=== PATIENT | male | born 1960 | race Hispanic/Latino ===

== ENCOUNTER 2017-03-21 09:32 | Emergency (ER) | payer MEDICAID, OTHER ==
[2017-03-21 09:38] VITALS: TEMP 97
[2017-03-21 09:39] VITALS: BMI 21.7
[2017-03-21 09:41] VITALS: BP 148/95; PULSE 87; RESP 18; O2SAT 100
--- NOTE | 2017-03-21 10:05 | ED PDOC ---
HPI: General Adult Time Seen by Provider: 03/21/17 09:57 Chief Complaint (Nursing): Trauma Chief Complaint (Provider): fall and injury History Per: Patient History/Exam Limitations: no limitations Onset/Duration Of Symptoms: Days (Yesterday) Have you had recent travel within the past 21 days to any of the following countries: [place], [place], [place] or [place]?: No Current Symptoms Are (Timing): Still Present Severity: Mild Additional Complaint(s): 57 year old male presents to ED with complaints of pain to left shoulder and knee after fall yesterday. Patient reports walking his dog last night and dog pulled him, causing him to twist left knee, lose balance and fall. He reports pain to shoulder and knee on left side. He reports pain is worse with movement or walking. Denies any head injury or other associated complaints. Past Medical History Reviewed: Historical Data, Nursing Documentation, Vital Signs Vital Signs: Last Vital Signs Temp 97 F L 03/21/17 09:38 Pulse 87 03/21/17 09:38 Resp 18 03/21/17 09:38 BP 148/95 H 03/21/17 09:38 Pulse Ox 100 03/21/17 10:55 - Medical History PMH: Depression, HTN - Family History Family History: States: Unknown Family Hx - Immunization History Hx Tetanus Toxoid Vaccination: No Hx Influenza Vaccination: No Hx Pneumococcal Vaccination: No - Home Medications Home Medications: Ambulatory Orders Medication Instructions Recorded Ibuprofen [Motrin] 600 mg PO Q8 #30 tab 03/21/17 - Allergies Allergies/Adverse Reactions: Allergies Allergy/AdvReac Type Severity Reaction Status Date / Time No Known Allergies Allergy Verified 03/21/17 09:37 Review of Systems ROS Statement: Except As Marked, All Systems Reviewed And Found Negative Musculoskeletal: Positive for: Shoulder Pain, Leg Pain Physical Exam - Reviewed Nursing Documentation Reviewed: Yes Vital Signs Reviewed: Yes - Physical Exam Appears: Positive for: Non-toxic, No Acute Distress Head Exam: Positive for: ATRAUMATIC, NORMAL INSPECTION, NORMOCEPHALIC Skin: Positive for: Warm, Dry. Negative for: Rash Eye Exam: Positive for: Normal appearance Neck: Positive for: Painless ROM Cardiovascular/Chest: Positive for: Regular Rate, Rhythm Respiratory: Positive for: Normal Breath Sounds Pulses-Radial (L): 2+ Neurologic/Psych: Positive for: Alert, Oriented Comments: Left upper extremity: no obvious deformity. Tenderness on palpation to anterolateral aspect and pain with abduction of shoulder. Elbow, wrist, hand and digits nontender, no swelling and normal radial pulse Left lower extremity: tenderness and swelling to anterior and medial aspect of knee. pain with flexion of knee, no laxity. No ecchymosis. No calf tenderness. Ankle and foot nontender with normal ROM. - ECG O2 Sat by Pulse Oximetry: 100 Medical Decision Making Medical Decision Making: patient fell onto left side and hurt shoulder and knee Xrays ordered to rule out fracture, Motrin PO given. Xrays viewed by me showing no acute fracture or dislocation to shoulder. Knee xray shows small effusion, no dislocation or fracture. Knee immobilizer applied by CP. Crutches with proper instructions. Patient advised to rest, ice and take analgesics as needed. Follow up with orthopedic if pain persist. Disposition - Clinical Impression Clinical Impression: Shoulder contusion, Contusion of knee, Knee effusion, left - Patient ED Disposition Is Patient to be Admitted: No Counseled Patient/Family Regarding: Studies Performed, Diagnosis, Need For Followup, Rx Given - Disposition Referrals: Pb Mello MD [Staff Provider] - Disposition: Routine/Home Disposition Time: 11:17 Condition: STABLE Additional Instructions: Your xray was normal, no fracture. Please apply ice to area 15 minutes three times a day. Take Motrin as needed for pain every 6 hours, with food to not upset stomach. Follow up with orthopedic if pain persists over one week. Prescriptions: Ibuprofen [Motrin] 600 mg PO Q8 #30 tab Instructions: Contusion in Adults (DC), Swollen Knee Joint (ED) Forms: [employer] (Armenian) - POA Present On Arrival: Falls Or Trauma
--- NOTE | 2017-03-21 11:47 | RAD ---
PROCEDURE: Radiographs of the Left Shoulder HISTORY: pain s.p fall COMPARISON: No prior. FINDINGS: BONES: Normal. No fracture. JOINTS: Normal. Glenohumeral and acromioclavicular joints preserved. No osteoarthritis. SOFT TISSUES: Normal. OTHER FINDINGS: None. IMPRESSION: Unremarkable radiographs of the left shoulder. Concordant results with the preliminary interpretation rendered by the emergency department physician procedure.
--- NOTE | 2017-03-21 11:52 | RAD ---
PROCEDURE: Left Knee Radiographs. HISTORY: Pain. COMPARISON: None. FINDINGS: BONES: Normal. No fracture. JOINTS: Normal. No osteoarthritis. JOINT EFFUSION: None. OTHER FINDINGS: None. IMPRESSION: Unremarkable radiographs of the left knee.
== END 2017-03-21 11:28 | disposition home or self-care (01) ==
LOC: H.ER 09:32
DX: S40.012A Contusion of left shoulder, initial encounter (principal); S80.02XA Contusion of left knee, initial encounter; W19.XXXA Unspecified fall, initial encounter; Y93.K1 Activity, walking an animal; F32.9 Major depressive disorder, single episode, unspecified; I10 Essential (primary) hypertension

== ENCOUNTER 2017-04-01 01:15 | Emergency (ER) | payer MEDICAID, OTHER ==
[2017-04-01 01:15] VITALS: BMI 21.7
[2017-04-01 01:27] VITALS: O2SAT 100
--- NOTE | 2017-04-01 02:19 | ED PDOC ---
Lower Extremity Pain/Injury Time Seen by Provider: 04/01/17 01:21 Chief Complaint (Nursing): Lower Extremity Problem/Injury Chief Complaint (Provider): Lower Extremity Problem History/Exam Limitations: no limitations Current Symptoms Are (Timing): Still Present Additional Complaint(s): 57 year old male brought in by EMS presents to ED with complaints of atraumatic left knee and ankle pain and has a history of alcohol abuse and is undomiciled. Patient presented to the ED previously for the same complaint and had a negative knee XR at the time. PCP: [facility] Past Medical History Reviewed: Historical Data, Nursing Documentation, Vital Signs Vital Signs: Last Vital Signs Temp 97.8 F 04/01/17 01:24 Pulse 82 04/01/17 01:24 Resp 18 04/01/17 01:24 BP 107/77 04/01/17 01:24 Pulse Ox 100 04/01/17 01:24 - Medical History PMH: Depression, HTN - Family History Family History: States: Unknown Family Hx - Living Arrangements Living Arrangements: Other (Undomiciled) - Social History Alcohol: > 2 Drinks/Day - Immunization History Hx Tetanus Toxoid Vaccination: No Hx Influenza Vaccination: No Hx Pneumococcal Vaccination: No - Home Medications Home Medications: Ambulatory Orders Medication Instructions Recorded Ibuprofen [Motrin] 600 mg PO Q8 #30 tab 03/21/17 Acetaminophen [Pain Reliever] 500 mg PO Q4 #30 tablet 04/01/17 - Allergies Allergies/Adverse Reactions: Allergies Allergy/AdvReac Type Severity Reaction Status Date / Time No Known Allergies Allergy Verified 04/01/17 01:24 Wells Criteria for PE - Wells Criteria for Pulmonary Embolism Heart Rate >100: No Hemoptysis: No Total Score: 0 Review of Systems ROS Statement: Except As Marked, All Systems Reviewed And Found Negative Musculoskeletal: Positive for: Leg Pain (left knee pain), Foot Pain (left ankle pain) Physical Exam - Reviewed Nursing Documentation Reviewed: Yes Vital Signs Reviewed: Yes - Physical Exam Appears: Positive for: Non-toxic, No Acute Distress (intoxicated appearing) Head Exam: Positive for: ATRAUMATIC, NORMOCEPHALIC Skin: Positive for: Normal Color, Warm, Dry Respiratory: Negative for: Respiratory Distress Extremity: Positive for: Normal ROM, Tenderness (left lateral/medial malleolus tenderness), Swelling (left knee had no swelling, left ankle mild swelling.). Negative for: Deformity Neurologic/Psych: Positive for: Alert, Oriented, Gait (unsteady), Other ( slurred speech). Negative for: Motor/Sensory Deficits - ECG O2 Sat by Pulse Oximetry: 100 (RA) Pulse Ox Interpretation: Normal Medical Decision Making Medical Decision Makin Initial impression: arthritic pain and EtOH abuse Initial plan: * Ibuprofen 600mg PO * XR ANKLE LEFT * Re-evaluation 0254 XR: NAD Patient is stable for discharge. Scribe Attestation: Documented by Pam Johnson acting as a scribe for Feroz Barajas MD. Scribe Attestation: All medical record entries made by the Scribe were at my direction and personally dictated by me. I have reviewed the chart and agree that the record accurately reflects my personal performance of the history, physical exam, medical decision making, and the department course for this patient. I have also personally directed, reviewed, and agree with the discharge instructions and disposition. Disposition - Clinical Impression Clinical Impression: Ankle pain - Disposition Referrals: Podiatry Clinic [Outside] Disposition: Routine/Home Disposition Time: 02:54 Condition: STABLE Prescriptions: Acetaminophen [Pain Reliever] 500 mg PO Q4 #30 tablet Instructions: Swollen Joint (ED) Forms: [employer] (Sami)
[2017-04-01 06:20] VITALS: BP 122/70; PULSE 87; RESP 16; TEMP 98.4
--- NOTE | 2017-04-01 10:39 | RAD ---
PROCEDURE: Left Ankle Radiographs. HISTORY: ankle swelling x 2 weeks COMPARISON: None FINDINGS: BONES: Normal. No fracture. JOINTS: Normal. No osteoarthritis. Ankle mortise maintained. Talar dome intact SOFT TISSUES: Soft tissue swelling primarily about the distal fibula without fracture. OTHER FINDINGS: None. IMPRESSION: Soft tissue swelling without acute articular or osseous abnormality. Concordant results with the preliminary interpretation rendered by the emergency department physician procedure.
== END 2017-04-01 06:20 | disposition home or self-care (01) ==
LOC: H.ER 01:15
DX: F10.10 Alcohol abuse, uncomplicated (principal); M19.072 Primary osteoarthritis, left ankle and foot; F32.9 Major depressive disorder, single episode, unspecified; I10 Essential (primary) hypertension

== ENCOUNTER 2018-06-27 05:39 | Emergency (ER) | payer MEDICAID ==
[2018-06-27 05:45] VITALS: BMI 19.8
[2018-06-27 05:52] VITALS: PULSE 81; RESP 18; TEMP 98
[2018-06-27] MEDS ORDERED: Permethrin 5% CREAM TOP ONE (06:17)
--- NOTE | 2018-06-27 06:26 | ED PDOC ---
HPI: Skin/Bite Injury Time Seen by Provider: 06/27/18 05:58 Chief Complaint (Nursing): Groin Pain Chief Complaint (Provider): Rash History Per: Patient History/Exam Limitations: no limitations Onset/Duration Of Symptoms: Days (x 7) Current Symptoms Are (Timing): Still Present Additional Complaint(s): 58 year old male with no significant medical history presents to the ED for evaluation of a diffuse, erythematous rash with small areas of crustation, onset 1 week ago. Patient is currently homeless and resides in the snf. Denies associated fever, vomiting, diarrhea and shortness of breath. PMD: none provided Past Medical History Reviewed: Historical Data, Nursing Documentation, Vital Signs Vital Signs: Last Vital Signs Temp 98.0 F 06/27/18 05:45 Pulse 81 06/27/18 05:45 Resp 18 06/27/18 05:45 BP 168/112 H 06/27/18 05:45 Pulse Ox 100 06/27/18 05:45 - Medical History PMH: Depression, HTN - Surgical History Surgical History: No Surg Hx - Family History Family History: States: Unknown Family Hx - Immunization History Hx Tetanus Toxoid Vaccination: No Hx Influenza Vaccination: No Hx Pneumococcal Vaccination: No - Home Medications Home Medications: Ambulatory Orders Medication Instructions Recorded Ibuprofen [Motrin] 600 mg PO Q8 #30 tab 03/21/17 Acetaminophen [Pain Reliever] 500 mg PO Q4 #30 tablet 04/01/17 - Allergies Allergies/Adverse Reactions: Allergies Allergy/AdvReac Type Severity Reaction Status Date / Time No Known Allergies Allergy Verified 06/27/18 05:45 Review of Systems ROS Statement: Except As Marked, All Systems Reviewed And Found Negative Constitutional: Negative for: Fever Respiratory: Negative for: Shortness of Breath Gastrointestinal: Negative for: Vomiting, Abdominal Pain Skin: Positive for: Rash Physical Exam - Reviewed Nursing Documentation Reviewed: Yes Vital Signs Reviewed: Yes - Physical Exam Appears: Positive for: No Acute Distress Head Exam: Positive for: ATRAUMATIC, NORMAL INSPECTION, NORMOCEPHALIC Skin: Positive for: Warm, Dry, Rash (diffuse scabies rash to trunk, upper and lower extremities) Eye Exam: Positive for: EOMI, Normal appearance, PERRL Neck: Positive for: Normal, Painless ROM, Supple Cardiovascular/Chest: Positive for: Regular Rate, Rhythm. Negative for: Murmur Respiratory: Positive for: Normal Breath Sounds. Negative for: Respiratory Distress Gastrointestinal/Abdominal: Positive for: Normal Exam, Soft. Negative for: Tenderness Extremity: Positive for: Normal ROM (x 4). Negative for: Deformity Neurologic/Psych: Positive for: Alert, Oriented (x 3). Negative for: Motor/Sensory Deficits - ECG O2 Sat by Pulse Oximetry: 100 (RA) Pulse Ox Interpretation: Normal Medical Decision Making Medical Decision Makin:17 Impression: 58 year old male with scabies Initial Plan: Patient was escorted to shower and provided with dosage of Elimite. He is stable for discharge and requires no further treatment at this time. Scribe Attestation: Documented by Bruna Forman acting as a scribe for Jose Angel Resendiz MD Provider Scribe Attestation: All medical record entries made by the Scribe were at my direction and personally dictated by me. I have reviewed the chart and agree that the record accurately reflects my personal performance of the history, physical exam, medical decision making, and the department course for this patient. I have also personally directed, reviewed, and agree with the discharge instructions and disposition. Disposition - Clinical Impression Clinical Impression: Scabies - Patient ED Disposition Is Patient to be Admitted: No - Disposition Disposition: Routine/Home Disposition Time: 06:17 Condition: STABLE Instructions: Scabies Forms: [employer] (Tajik)
[2018-06-27 06:53] VITALS: BP 154/89; O2SAT 99
== END 2018-06-27 06:52 | disposition home or self-care (01) ==
LOC: H.ER 05:39
DX: B86 Scabies (principal); Z59.0 Homelessness

== ENCOUNTER 2018-07-12 05:12 | Inpatient (IN) | payer MEDICAID ==
[2018-07-12 05:12] VITALS: BMI 19.8
[2018-07-12] MEDS ORDERED: Permethrin 5% CREAM TOP ONE (05:44)
--- NOTE | 2018-07-12 06:53 | ED PDOC ---
HPI: SOB/CHF/COPD Time Seen by Provider: 07/12/18 05:44 Chief Complaint (Nursing): Abnormal Skin Integrity History Per: Patient History/Exam Limitations: no limitations Onset/Duration Of Symptoms: Days Current Symptoms Are (Timing): Still Present Quality: Tightness Exacerbating Factor(s): Coughing Associated Symptoms: denies: Fever, Chills, Chest Pain, Ankle/Leg Swelling Additional Complaint(s): 58 yo M presents with complaint of cough worsening over one week. Cough productive of sputum. No CP or fever. Pt also complains of scabies to chest and arms and there is a known outbreak in his skilled nursing. Past Medical History Vital Signs: Last Vital Signs Temp 98.2 F 07/12/18 05:15 Pulse 107 H 07/12/18 05:15 Resp 18 07/12/18 05:15 BP 142/88 07/12/18 05:15 Pulse Ox 94 L 07/12/18 05:15 - Medical History PMH: Depression, HTN - Family History Family History: States: Unknown Family Hx - Immunization History Hx Tetanus Toxoid Vaccination: No Hx Influenza Vaccination: No Hx Pneumococcal Vaccination: No - Home Medications Home Medications: Ambulatory Orders Medication Instructions Recorded Ibuprofen [Motrin] 600 mg PO Q8 #30 tab 03/21/17 Acetaminophen [Pain Reliever] 500 mg PO Q4 #30 tablet 04/01/17 - Allergies Allergies/Adverse Reactions: Allergies Allergy/AdvReac Type Severity Reaction Status Date / Time No Known Allergies Allergy Verified 07/12/18 05:38 Curb-65 Severity Score - CURB-65 Severity Score Confusion: No Bun >19mg/dl (>7mmol/L): No Respiratory Rate greater than/equal to 30: No Systolic BP <90 or Diastolic BP less than/equal 60mmHg: No Age >64: No Curb-65 Score: 0 Percentage 30-day mortality: 0.6% Review of Systems Constitutional: Positive for: Weakness. Negative for: Fever, Chills Eyes: Negative for: Pain, Vision Change Cardiovascular: Negative for: Chest Pain, Palpitations, Edema Respiratory: Positive for: Cough, Shortness of Breath Gastrointestinal: Positive for: Nausea Neurological: Negative for: Weakness, Numbness, Incoordination, Change in Speech, Confusion, Seizures, Altered Mental Status Psych: Negative for: Withdrawal Physical Exam - Physical Exam Appears: Positive for: Well, Non-toxic, No Acute Distress Head Exam: Positive for: ATRAUMATIC Skin: Positive for: Normal Color, Rash (red, tender bumps across upper chest and upper extremities. Supperficial excoriations to chest and arms.) Eye Exam: Positive for: Normal appearance ENT: Positive for: Normal ENT Inspection Neck: Positive for: Normal Cardiovascular/Chest: Positive for: Regular Rate, Rhythm Respiratory: Positive for: Normal Breath Sounds Gastrointestinal/Abdominal: Positive for: Normal Exam, Soft. Negative for: Tenderness Back: Positive for: Normal Inspection Extremity: Positive for: Normal ROM. Negative for: Tenderness, Pedal Edema, Calf Tenderness, Swelling Neurologic/Psych: Positive for: Alert, time lock expert II-XII, Oriented - ECG O2 Sat by Pulse Oximetry: 94 Medical Decision Making Medical Decision Making: Pt with cough and generalized malaise. Scabies of torso and extremities. Workup for URI/pneumonia. Pt showered prior to evaluation in the ED and Permethrin cream was applied to torso. -lab -nebulizer treatment -CXR -most likely discharge home. Pt to be signed out to Dr. Carlson pending labs and CXR. Disposition - Clinical Impression Clinical Impression: Moderate COPD (chronic obstructive pulmonary disease), Cough, Scabies - Patient ED Disposition Is Patient to be Admitted: No - Disposition Disposition: Transfer of Care Disposition Time: 07:02 Condition: IMPROVED Forms: [employer] (Dominican)
[2018-07-12] MEDS ORDERED: Albuterol-Ipratrop 3 mg / 0.5 (3 ml) UD INH STA (07:11)
--- NOTE | 2018-07-12 07:19 | ED PDOC ---
- Laboratory Results Result Diagrams: 07/12/18 07:00 07/12/18 07:00 - ECG ECG: Positive for: Interpreted By Me ECG Rhythm: Positive for: Normal QRS, Sinus Tachycardia, Nonspecific Changes Rate: 107 O2 Sat by Pulse Oximetry: 94 Pulse Ox Interpretation: Abnormal (mild hypoxia) - Radiology X-Ray: Interpreted by Me X-Ray Interpretation: Pnemothorax - Physician Consult Information Physician Contacted: Meir Vernon (ICU care) - Critical Care Total Time (In Min): 35 Comments: excluding procedures for management of pre and post procedure of patient with acute tension pneumothorax Medical Decision Making Medical Decision Making: Time: 717 Patient endorsed to provider from Shannan Hart MD. Patient pending labs and CXR. CXR revealed large L sided pneumothorax with some midline shift on my read, unlikely bullae as compared to prior CXR significant difference in appearance To proceed with chest tube placement. Consent obtained signed and scanned in chart after risks/benefits/alternatives explained. patient is AAOx3. Labs reviewed, coags and platelets normal, etoh 51 Ativan 1mg prior given for mild alcohol withdrawal with tremulousness and anxiety. States drinks daily, last drink last night. Procedure Note Chest tube placement president finance company Dr Sierra performed procedure under my supervision for entirety of procedure. Time out performed with correct patient via 2 identifiers, site (L) and pr ocedure (L chest tube placement) verified. Personnel, equipment and allergies again verified. Remained awake for procedure, performed with local anesthesia. Analgesics given. See adjoining surgery note. On dissection to pleural space, some element tension pneumo likely present given clinical decompression evident. Repeat CXR lung re-expanded. Admit ICU floor covering contractor medicine GOLDY Etienne at bedside 915a and Dr Vernon ICU aware 910am, care transferred. Surgery to follow for CT surg consult, CT chest ordered. Scribe Attestation: Documented by Kali Farris, acting as a scribe for Jose M Carlson III, DO. Provider Scribe Attestation: All medical record entries made by the Scribe were at my direction and personally dictated by me. I have reviewed the chart and agree that the record accurately reflects my personal performance of the history, physical exam, medical decision making, and the department course for this patient. I have also personally directed, reviewed, and agree with the discharge instructions and disposition. Disposition Counseled Patient/Family Regarding: Studies Performed, Diagnosis - Clinical Impression Clinical Impression: Moderate COPD (chronic obstructive pulmonary disease), Cough, Scabies, Tension pneumothorax, spontaneous - POA Present On Arrival: None - Disposition Disposition: Admitted as In-Patient Disposition Time: 09:00 Condition: IMPROVED
[2018-07-12] MEDS ORDERED: Albuterol-Ipratrop 3 mg / 0.5 (3 ml) UD ONE (07:25)
[2018-07-12 07:55] LABS: BASO # 0.1 K/uL (0.0-0.2); BASO % 0.9 % (0.0-2.0); EOS # 0.1 K/uL (0.0-0.7); EOS % 0.7 % (0.0-4.0); HEMOGLOBIN 14.6 g/dL (12.0-18.0); LYMPH # 1.6 K/uL (1.0-4.3); LYMPH % 14.6 % (20.0-40.0); MEAN CELL VOLUME 95.9 fl (80.0-94.0); MEAN CORPUSCULAR HEMOGLOBIN 31.9 pg (27.0-31.0); MEAN CORPUSCULAR HGB CONC 33.2 g/dL (33.0-37.0); MEAN PLATELET VOLUME 8.8 fl (7.2-11.7); MONO # 1.2 K/uL (0.0-0.8); MONO % 11.6 % (0.0-10.0); NEUT # 7.7 K/uL (1.8-7.0); NEUT % 72.2 % (50.0-75.0); NRBC % 0.1 % (0.0-0.0); RBC 4.58 Mil/uL (4.40-5.90); RED CELL DISTRIBUTION WIDTH 12.8 % (11.5-14.5); WHITE BLOOD COUNT 10.6 K/uL (4.8-10.8)
[2018-07-12 08:19] LABS: BLOOD UREA NITROGEN 17 mg/dl (9-20); CALCIUM 9.6 mg/dL (8.4-10.2); GFR NON-AFRICAN AMERICAN > 60
[2018-07-12 08:20] LABS: PROTHROMBIN TIME 11.8 Seconds (9.8-13.1)
[2018-07-12 08:23] LABS: PARTIAL THROMBOPLASTIN TIME 32.2 Seconds (25.6-37.1)
[2018-07-12] MEDS ORDERED: Lidocaine 1% Inj (20ml) IJ ONE (08:31)
[2018-07-12] MEDS ORDERED: Povidone Iodine Topical 10% Sol ONE (08:32)
[2018-07-12] MEDS ORDERED: Lidocaine 2% MPF (5 ml) Inj ONE ×2 (08:33)
[2018-07-12] MEDS ORDERED: Morphine 4 MG/ML VIAL ONE (08:39)
--- NOTE | 2018-07-12 09:13 | CP.PCM.CON ---
History of Present Illness - History of Present Illness History of Present Illness: CARDIOTHORACIC CONSULT NOTE FOR DR. AWAD Reason: left pneumothorax 58M presents with shortness of breath that began earlier today. Patient states he has never had something like this before. He admits to symptoms of URI inclu ding cough for the last week. He admits to chest pain, denies abdominal pain, denies nausea or vomiting. Admits to use of cocaine 3 days ago. PMH: Scabies PSH: Left inguinal hernia repair, vein stripping Social: admits to tobacco use, cocaine use and alcohol use Allergies: NKDA Past Patient History - Past Medical History & Family History Past Medical History?: Yes - Past Social History Smoking Status: Heavy Smoker > 10 Cigarettes Daily - CARDIAC Hx Hypertension: Yes - PULMONARY Hx Respiratory Disorders: No - NEUROLOGICAL Hx Neurological Disorder: No - HEENT Hx HEENT Problems: No - ENDOCRINE/METABOLIC Hx Endocrine Disorders: No - HEMATOLOGICAL/ONCOLOGICAL Hx Blood Disorders: No - INTEGUMENTARY Hx Dermatological Problems: No - MUSCULOSKELETAL/RHEUMATOLOGICAL Hx Musculoskeletal Disorders: No - GASTROINTESTINAL Hx Gastrointestinal Disorders: No - GENITOURINARY/GYNECOLOGICAL Hx Genitourinary Disorders: No - PSYCHIATRIC Hx Depression: Yes Hx Substance Use: Yes - SURGICAL HISTORY Hx Surgeries: Yes Hx Herniorrhaphy: Yes (left groin hernia SX) Other/Comment: VERICOSE VEIN S/L LEFT LEG 1990 - ANESTHESIA Hx Anesthesia: Yes Hx Anesthesia Reactions: No Hx Malignant Hyperthermia: No Meds Allergies/Adverse Reactions: Allergies Allergy/AdvReac Type Severity Reaction Status Date / Time No Known Allergies Allergy Verified 07/12/18 05:38 - Medications Medications: Current Medications Lorazepam (Ativan) 1 mg IVP ONCE ONE Stop: 07/12/18 09:09 Morphine Sulfate (Morphine) 2 mg IV ONCE STA Stop: 07/12/18 09:08 Morphine Sulfate (Morphine) 2 mg IV ONCE STA Stop: 07/12/18 09:08 Physical Exam - Constitutional Additional comments: Uncomfortable from shortness of breath - Head Exam Head Exam: ATRAUMATIC - ENT Exam ENT Exam: Mucous Membranes Moist - Respiratory Exam Respiratory Exam: Decreased Breath Sounds (left sided) Additional comments: tachypnic - Cardiovascular Exam Cardiovascular Exam: Tachycardia, REGULAR RHYTHM, +S1, +S2 - GI/Abdominal Exam GI & Abdominal Exam: Soft. absent: Distended, Firm, Guarding, Rebound, Rigid, Tenderness - Exam Additional comments: right inguinal hernia - Extremities Exam Extremities exam: Negative for: pedal edema, tenderness - Neurological Exam Neurological exam: Alert, Oriented x3 - Psychiatric Exam Psychiatric exam: Normal Affect, Normal Mood - Skin Skin Exam: Dry, Intact, Normal Color, Rash (scabies), Warm Results - Vital Signs Recent Vital Signs: Last Vital Signs Temp 98.2 F 07/12/18 05:15 Pulse 107 H 07/12/18 05:15 Resp 19 07/12/18 07:09 BP 142/88 07/12/18 05:15 Pulse Ox 94 L 07/12/18 09:09 - Labs Result Diagrams: 07/12/18 07:00 07/12/18 07:00 Labs: Laboratory Results - last 24 hr 07/12/18 07/12/18 07/12/18 07:00 07:00 07:45 WBC 10.6 D RBC 4.58 Hgb 14.6 Hct 43.9 MCV 95.9 H MCH 31.9 H MCHC 33.2 RDW 12.8 Plt Count 286 MPV 8.8 Neut % (Auto) 72.2 Lymph % (Auto) 14.6 L [place] % (Auto) 11.6 H Eos % (Auto) 0.7 Baso % (Auto) 0.9 Neut # (Auto) 7.7 H Lymph # (Auto) 1.6 [place] # (Auto) 1.2 H Eos # (Auto) 0.1 Baso # (Auto) 0.1 PT 11.8 INR 1.0 APTT 32.2 Sodium 140 Potassium 3.9 Chloride 97 L Carbon Dioxide 29 Anion Gap 18 BUN 17 Creatinine 0.7 L Est GFR ( Amer) > 60 Est GFR (Non-Af Amer) > 60 Random Glucose 107 Calcium 9.6 Alcohol, Quantitative 51 H Assessment & Plan - Assessment and Plan (Free Text) Assessment: 58M with left pneumothorax as seen on CXR Plan: - will place left sided chest tube Discussed with Dr. Jenny Julio, PGY3
--- NOTE | 2018-07-12 09:18 | PCM.PROC ---
Procedures Attestation:: I certify that I have explained the specified Operation(s) or Procedure(s), risks, benefits and reasonable alternatives to the Patient and/or other person responsible. The opportunity was given to ask questions and all questions answered - Chest Tube Chest Tube Location: Lateral Chest Left Chest Tube Procedure: Alcohol Tube Sutured to Skin: Yes Sterile Dressing Applied: Yes Anesthesia: Lidocaine 1% Volume Anesthetic (mls): 10 Incision Made With: #11 blade Post Procedure: sutured to skin, sterile dressing applied, air occlusive dressing [place] of Air [place]: Yes Tube Drainage: none Amount of Initial Drainage: 0 Post Procedure CXR?: Yes Patient Tolerated Procedure: Yes Progress: 14cm at the skin
--- NOTE | 2018-07-12 10:56 | RAD ---
Date of service: 07/12/2018 HISTORY: cough COMPARISON: Chest radiograph dated 03/15/2015. FINDINGS: LUNGS: Chronic changes. Stable large medial biapical bullae. New large left lateral bulla versus loculated pneumothorax. PLEURA: No significant pleural effusion identified. CARDIOVASCULAR: Aortic atherosclerotic calcifications. Cardiomediastinal silhouette stably enlarged. OSSEOUS STRUCTURES: Unchanged. VISUALIZED UPPER ABDOMEN: Normal. OTHER FINDINGS: Mild mediastinal shift to the right. IMPRESSION: New large left lateral pole of versus loculated pneumothorax. Mild mediastinal shift to the right. Stable large medial biapical bullae.
--- NOTE | 2018-07-12 11:12 | RAD ---
Date of service: 07/12/2018 HISTORY: chest tube COMPARISON: No prior. FINDINGS: LUNGS: Stable appearance of large medial biapical bullae. PLEURA: Decompression of large left lateral bulla versus pneumothorax post chest tube insertion. CARDIOVASCULAR: Aortic atherosclerotic calcifications. Cardiomediastinal silhouette stably enlarged. OSSEOUS STRUCTURES: Unchanged. VISUALIZED UPPER ABDOMEN: Normal. OTHER FINDINGS: New left-sided large-bore chest tube IMPRESSION: Decompression of large left lateral midpole of versus pneumothorax post chest tube insertion. No other significant interval change.
[2018-07-12] MEDS ORDERED: Multivitamin (MVI) 10 ML, Thiamine 100 MG, Folic Acid 1 MG in Dextrose 5%/0.45% NS 1,00... IV ONE (12:36)
--- NOTE | 2018-07-12 12:43 | CP.CCUPN ---
CCU Subjective - Physician Review Subjective (Free Text): ICU Admission form ER; discussed with ER MD: 58M, homeless, with persistent cough x several weeks , within increase in frequency and now assoc with chest discomfort. Initial E, eval noted a spontaneous PTX on Left, no tension, underwent large bore chest tube insertion, no other distress, did not require MV support nor other assisted breathing, and other hemodynamics stable. Low level ETOH detected and patient exhibited withdrawal symptoms, given IV Ativan. Scabies skin infection noted and subsequent decontamination performed. As well. Upon arrival to ICU, appeared calm, and remained non-distressed, chest tube in place on the left under continuous suction; was able to self- move and slide over to the ICU bed. Afebrile, 150/90., HR 90, RR 18, 94% on 100% NRBM Other vitals and I/O's reviewed. ROS: No other pertinent negs or positives on 10+ system review PMSFH: Admits to occasional heroin and crack use. All other Nursing and physician documentation reviewed to date; no new pertinent info noted relevant to current medical problems. EXAM- HEENT: no icterus, no gaze preference, pupils non-constricted with normal reactivity noted, no nystagmus NECK: no JVD visible, supple, carotids equal upstroke bilat/no bruit CHEST: decreased BS at the bases, no wheezes audible HEART: regular, distant, S1S2, no rubs ABD: soft, no distension, no focal tenderness, no tympany, no guarding, no organomegaly, BS hypoactive. EXT: no LE edema, no mottling; no calf tenderness or palpable cords, distal pulses intact and symmetrical, no cyanosis. NEURO: no gross focal motor deficits. SKIN: warm and dry, multiple excoriations over anterior chest, back, arms and legs. Crusted erythematous small circular lesions over upper anterior chest, arms and legs, LABS: WBC= 10.6 HGB= 14.6 PLTs= 286K Na= 140 K= 3.9 CL= 97 HCO3= 29 BUN/Cr= 17/0.7 BS= 107 CXR: (my interp)- large bleb RUL, greater than 50% left PTX. CXR post CT insertion: (my interp)- improved expansion of left lung, probable large blebs SHILPA and Left basilar region. IMPRESSION / MAJOR PROBLEMS NOW: 1. Acute Resp insuff 2 non-traumatic Left PTX 2. COPD 3. Chronic ETOH Abuse with Alcohol Withdrawal syndrome, no mars DTs apparent. 4. Substance Abuse with Cocaine / Heroin PLAN: 1. Serial CXR, would consider CT chest to assess for any full lung expansion post CT insertion. 2. CT suction / mgmt. as per Danae. 3. Neb bronchodilators 4. Urine Tox testing 5. Librium PO, or Ativan IV of PO not feasible. 6. Thiamine / Folate supplements.
[2018-07-12] MEDS: Albuterol-Ipratrop 3 mg / 0.5 (3 ml) UD INH SCH ×2 (15:30→19:17)
[2018-07-12] MEDS: Enoxaparin 40 mg Syringe SC SCH (19:41)
--- NOTE | 2018-07-13 02:02 | CP.PCM.HP ---
History of Present Illness - History of Present Illness History of Present Illness: Seen and assessed at 09:30 in Emergency Department. HPI: 58 y/o homeless male pt presented to the ED with worsening cough and sputum production over the past week. CXR revealed left sided tension pneumothorax, and a chest tube insertion was done. At present, the pt reports breathing better. Of note, the pt is showing s/s of mild alcohol withdrawal, and reports drinking late last night. PMH: HTN, Anxiety, Depression, Falls, Substance Abuse, Scabies. PSH: Herniorrhaphy (left groin hernia surgery), Varicose vein surgery. Social History: Light smoker, substance use, ETOH. Present on Admission - Present on Admission Any Indicators Present on Admission: No Review of Systems - Constitutional Constitutional: Fatigue, Malaise - Respiratory Respiratory: Cough, Dyspnea on Exertion, Excessive Mucous Production - Integumentary Additional comments: scabies throughout skin Past Patient History - Past Medical History & Family History Past Medical History?: Yes - Past Social History Smoking Status: Light Smoker < 10 Cigarettes Daily - CARDIAC Hx Cardiac Disorders: Yes Hx Hypertension: Yes - PULMONARY Hx Respiratory Disorders: No - NEUROLOGICAL Hx Neurological Disorder: No - HEENT Hx HEENT Problems: No - RENAL Hx Chronic Kidney Disease: No - ENDOCRINE/METABOLIC Hx Endocrine Disorders: No - HEMATOLOGICAL/ONCOLOGICAL Hx Blood Disorders: No - INTEGUMENTARY Hx Dermatological Problems: No - MUSCULOSKELETAL/RHEUMATOLOGICAL Hx Falls: Yes Other/Comment: Left shoulder and knee contusion - GASTROINTESTINAL Hx Gastrointestinal Disorders: No - GENITOURINARY/GYNECOLOGICAL Hx Genitourinary Disorders: No - PSYCHIATRIC Hx Anxiety: Yes Hx Depression: Yes Hx Substance Use: Yes (crack) - SURGICAL HISTORY Hx Surgeries: Yes Hx Herniorrhaphy: Yes (left groin hernia SX) Other/Comment: VERICOSE VEIN S/L LEFT LEG 1989 - ANESTHESIA Hx Anesthesia: Yes Hx Anesthesia Reactions: No Hx Malignant Hyperthermia: No Has any member of the family had a problem w/ anesthesia?: No Meds Allergies/Adverse Reactions: Allergies Allergy/AdvReac Type Severity Reaction Status Date / Time No Known Allergies Allergy Verified 07/12/18 05:38 Physical Exam - Constitutional Appears: Older Than Stated Age - Head Exam Head Exam: NORMAL INSPECTION, NORMOCEPHALIC - Eye Exam Eye Exam: EOMI, Normal appearance, PERRL Pupil Exam: NORMAL ACCOMODATION, PERRL - ENT Exam ENT Exam: Mucous Membranes Moist - Neck Exam Neck exam: Positive for: Normal Inspection - Respiratory Exam Respiratory Exam: Decreased Breath Sounds Additional comments: chest tube to left lung - Cardiovascular Exam Cardiovascular Exam: REGULAR RHYTHM, +S1, +S2 - GI/Abdominal Exam GI & Abdominal Exam: Normal Bowel Sounds, Soft - Extremities Exam Extremities exam: Positive for: full ROM, normal inspection - Back Exam Back exam: NORMAL INSPECTION - Neurological Exam Neurological exam: Alert - Psychiatric Exam Psychiatric exam: Anxious - Skin Skin Exam: Dry, Warm Additional comments: scabies lesions noted throughout the trunk and to the bilateral upper extremities. Results - Vital Signs Recent Vital Signs: Last Vital Signs Temp 98.2 F 07/12/18 20:00 Pulse 107 H 07/12/18 22:08 Resp 20 07/12/18 22:00 BP 163/96 H 07/12/18 22:00 Pulse Ox 94 L 07/12/18 22:08 - Labs Result Diagrams: 07/12/18 07:00 07/12/18 07:00 Labs: Laboratory Results - last 24 hr 07/12/18 07/12/18 07/12/18 07:00 07:00 07:45 WBC 10.6 D RBC 4.58 Hgb 14.6 Hct 43.9 MCV 95.9 H MCH 31.9 H MCHC 33.2 RDW 12.8 Plt Count 286 MPV 8.8 Neut % (Auto) 72.2 Lymph % (Auto) 14.6 L [place] % (Auto) 11.6 H Eos % (Auto) 0.7 Baso % (Auto) 0.9 Neut # (Auto) 7.7 H Lymph # (Auto) 1.6 [place] # (Auto) 1.2 H Eos # (Auto) 0.1 Baso # (Auto) 0.1 PT 11.8 INR 1.0 APTT 32.2 Sodium 140 Potassium 3.9 Chloride 97 L Carbon Dioxide 29 Anion Gap 18 BUN 17 Creatinine 0.7 L Est GFR ( Amer) > 60 Est GFR (Non-Af Amer) > 60 Random Glucose 107 Calcium 9.6 Alcohol, Quantitative 51 H Assessment & Plan (1) Tension pneumothorax, spontaneous Assessment and Plan: 1.) Spontaneous Pneumothorax -Left sided chest tube inserted by surgical team. -Maintain chest tube to water suction; obtain CXR's daily to monitor lung re- expansion. -Manage upper respiratory symptoms with duonebs. -Sputum culture ordered. -consults input appreciated. -continue current medical tx. Status: Acute (2) Alcohol abuse Assessment and Plan: 2.) Alcohol Abuse -Librium Q8h scheduled and Ativan PRN. -Daily folic acid and thiamine. -Assess agitation and safety risk. Status: Acute
[2018-07-13] MEDS ORDERED: Sodium Chloride 3% for Inhalation 4 ML VIAL.NEB IH PRN (02:14)
[2018-07-13 05:20] LABS: HEMOGLOBIN 14.6 g/dL (12.0-18.0); MEAN CELL VOLUME 96.7 fl (80.0-94.0); MEAN CORPUSCULAR HEMOGLOBIN 33.3 pg (27.0-31.0); MEAN CORPUSCULAR HGB CONC 34.4 g/dL (33.0-37.0); RBC 4.39 Mil/uL (4.40-5.90); RED CELL DISTRIBUTION WIDTH 12.8 % (11.5-14.5); WHITE BLOOD COUNT 10.7 K/uL (4.8-10.8)
[2018-07-13 05:29] LABS: ALBUMIN 3.9 g/dL (3.5-5.0); ALT/SGPT 50 U/L (21-72); AST/SGOT 49 U/L (17-59); BLOOD UREA NITROGEN 15 mg/dl (9-20); CALCIUM 9.4 mg/dL (8.4-10.2); GFR NON-AFRICAN AMERICAN > 60
[2018-07-13] MEDS: Albuterol-Ipratrop 3 mg / 0.5 (3 ml) UD INH SCH ×4 (07:31→19:25)
--- NOTE | 2018-07-13 07:41 | CP.PCM.PN ---
Subjective - Date & Time of Evaluation Date of Evaluation: 07/13/18 Time of Evaluation: 07:37 - Subjective Subjective: CT Sx: Dr Ramsey Pt S&E in ICU. Resting comfortably. Arousable. Pain controlled. CT in place, on suction, + air leak noted, minimal serosanguinous output. On non- rebreather. O2 > 96%. On CIWA monitoring and Librium for EtOH withdrawal. Objective - Vital Signs/Intake and Output Vital Signs (last 24 hours): Temp Pulse Resp BP Pulse Ox 100.1 F H 84 25 H 157/95 H 96 07/13/18 04:00 07/13/18 06:00 07/13/18 06:00 07/13/18 06:00 07/13/18 06:00 Intake and Output: 07/13/18 07/13/18 06:59 18:59 Intake Total 1125 Output Total 620 Balance 505 - Medications Medications: Current Medications Acetaminophen (Tylenol 325mg Tab) 650 mg PO Q4 PRN PRN Reason: Pain, Mild (1-3) Albuterol/Ipratropium (Duoneb 3 Mg/0.5 Mg (3 Ml) Ud) 3 ml INH RQID [facility] Last Admin: 07/13/18 07:31 Dose: 3 ml Chlordiazepoxide (Librium) 50 mg PO Q8 [facility] Last Admin: 07/13/18 01:21 Dose: 50 mg Enoxaparin Sodium (Lovenox) 40 mg SC DAILY [facility]; Protocol Last Admin: 07/12/18 19:41 Dose: 40 mg Folic Acid (Folic Acid) 1 mg PO DAILY [facility] Last Admin: 07/12/18 13:32 Dose: 1 mg Morphine Sulfate (Morphine) 2 mg IVP Q4 PRN PRN Reason: Pain, moderate (4-7) Last Admin: 07/13/18 04:17 Dose: 2 mg Nicotine (Nicoderm Cq) 1 patch TD DAILY [facility] Last Admin: 07/12/18 13:30 Dose: 1 patch Thiamine HCl (Vitamin B1 Tab) 100 mg PO DAILY [facility] Last Admin: 07/12/18 13:32 Dose: 100 mg - Labs Labs: 07/13/18 05:00 07/13/18 05:00 PT 11.8 Seconds (9.8-13.1) 07/12/18 07:45 INR 1.0 07/12/18 07:45 APTT 32.2 Seconds (25.6-37.1) 07/12/18 07:45 - Constitutional Appears: Non-toxic, Unkempt - Respiratory Exam Respiratory Exam: absent: Accessory Muscle Use, Respiratory Distress - Cardiovascular Exam Cardiovascular Exam: REGULAR RHYTHM. absent: Tachycardia - GI/Abdominal Exam GI & Abdominal Exam: Soft. absent: Distended Assessment and Plan - Assessment and Plan (Free Text) Assessment: 58M with extensive bullous disease. s/p L thoracostomy tube for spontaenous pneumo Plan: will follow up official CT read continue CT to wall suction continue incentive spirometer would recommend repeating Chest CT with chest tube on suction while on CT scanner table may require operative intervention if leak does not seal will d/w atteding Aminta, PGY4
--- NOTE | 2018-07-13 07:45 | CP.CCUPN ---
CCU Subjective - Physician Review Subjective (Free Text): No distress overnight, isolated BP elevations noted, no new pain nor agitation noted, given Cardizem IVP lowering SBP from 170s- 140s. Temp 100.1F now, no fever spikes overnight; 150/90., HR 90, RR 25, 96% on NC. Completing initial BBag IVFs. Other vitals and I/O's reviewed. ROS: No other pertinent negs or positives on 10+ system review PMSFH: Admits to occasional heroin and crack use. All other Nursing and physician documentation reviewed to date; no new pertinent info noted relevant to current medical problems. EXAM- HEENT: no icterus, no gaze preference, pupils non-constricted with normal reactivity noted, no nystagmus NECK: no JVD visible, supple, carotids equal upstroke bilat/no bruit CHEST: decreased BS at the bases, no wheezes audible, Left CT intact, no [employer]. No air leak noted in PleuroVac, remains on neg 20 suction. HEART: regular, distant, S1S2, no rubs ABD: soft, no distension, no focal tenderness, no tympany, no guarding, no organomegaly, BS hypoactive. EXT: no LE edema, no mottling; no calf tenderness or palpable cords, distal pulses intact and symmetrical, no cyanosis. NEURO: no gross focal motor deficits. SKIN: warm and dry, multiple excoriations over anterior chest, back, arms and legs. Crusted erythematous small circular lesions over upper anterior chest, arms and legs, LABS: WBC= 10.7 HGB= 14.6 PLTs= 262K Na= 132 K= 4.2 CL= 94 HCO3= 27 BUN/Cr= 15/0.6 BS= 122 CXR: (my interp)- near full expansion of Left lung, multiple bullae seen, RUL, SHILPA, Left base. IMPRESSION / MAJOR PROBLEMS NOW: 1. Acute Resp insuff 2 non-traumatic Left PTX 2. COPD 3. Chronic ETOH Abuse with Alcohol Withdrawal syndrome, no mars DTs apparent. 4. Substance Abuse with Cocaine / Heroin PLAN: 1. Serial CXRs, CT chest result reviewed. Continue neb bronchodilators. 2. CT suction / mgmt as per Thorrenata. 3. Watch BP trends, no previous h/o HTN, will start Ca Blockers if sustained MAPs over 110. 4. Urine Tox testing ordered yesterday and pending. 5. Librium PO, or Ativan IV of PO not feasible. 6. Thiamine / Folate supplements. CCU Objective - Medications Active Medications: Active Medications Generic Name Dose Route Start Last Admin Trade Name Freq PRN Reason Stop Dose Admin Acetaminophen 650 mg 07/12/18 12:35 Tylenol 325mg Tab PO Q4 PRN Pain, Mild (1-3) Albuterol/Ipratropium 3 ml 07/12/18 16:00 07/13/18 07:31 Duoneb 3 Mg/0.5 Mg (3 Ml) Ud INH 3 ml RQID YANA Administration Chlordiazepoxide 50 mg 07/12/18 17:00 07/13/18 01:21 Librium PO 50 mg Q8 YANA Administration Enoxaparin Sodium 40 mg 07/12/18 15:15 07/12/18 19:41 Lovenox SC 40 mg DAILY YANA Administration Protocol Folic Acid 1 mg 07/12/18 12:45 07/12/18 13:32 Folic Acid PO 1 mg DAILY YANA Administration Morphine Sulfate 2 mg 07/12/18 12:35 07/13/18 04:17 Morphine IVP 2 mg Q4 PRN Administration Pain, moderate (4-7) Nicotine 1 patch 07/12/18 12:45 07/12/18 13:30 Nicoderm Cq TD 1 patch DAILY YANA Administration Thiamine HCl 100 mg 07/12/18 12:45 07/12/18 13:32 Vitamin B1 Tab PO 100 mg DAILY YANA Administration - Patient Studies Lab Studies: Lab Studies 07/13/18 07/13/18 07/12/18 Range/Units 05:00 05:00 07:45 WBC 10.7 (4.8-10.8) K/uL RBC 4.39 L (4.40-5.90) Mil/uL Hgb 14.6 (12.0-18.0) g/dL Hct 42.5 (35.0-51.0) % MCV 96.7 H (80.0-94.0) fl MCH 33.3 H (27.0-31.0) pg MCHC 34.4 (33.0-37.0) g/dL RDW 12.8 (11.5-14.5) % Plt Count 262 (130-400) K/uL MPV (7.2-11.7) fl Neut % (Auto) (50.0-75.0) % Lymph % (Auto) (20.0-40.0) % [place] % (Auto) (0.0-10.0) % Eos % (Auto) (0.0-4.0) % Baso % (Auto) (0.0-2.0) % Neut # (Auto) (1.8-7.0) K/uL Lymph # (Auto) (1.0-4.3) K/uL [place] # (Auto) (0.0-0.8) K/uL Eos # (Auto) (0.0-0.7) K/uL Baso # (Auto) (0.0-0.2) K/uL PT 11.8 (9.8-13.1) Seconds INR 1.0 APTT 32.2 (25.6-37.1) Seconds Sodium 132 (132-148) mmol/l Potassium 4.2 (3.6-5.0) MMOL/L Chloride 94 L (98-107) mmol/L Carbon Dioxide 27 (22-30) mmol/L Anion Gap 15 (10-20) BUN 15 (9-20) mg/dl Creatinine 0.6 L (0.8-1.5) mg/dl Est GFR ( Amer) > 60 Est GFR (Non-Af Amer) > 60 Random Glucose 122 H (75-110) mg/dL Calcium 9.4 (8.4-10.2) mg/dL Total Bilirubin 0.9 (0.2-1.3) mg/dl AST 49 (17-59) U/L ALT 50 (21-72) U/L Alkaline Phosphatase 101 (38-126) U/L Total Protein 7.9 (6.3-8.2) G/DL Albumin 3.9 (3.5-5.0) g/dL Globulin 4.0 H (2.2-3.9) gm/dL Albumin/Globulin Ratio 1.0 (1.0-2.1) Alcohol, Quantitative (0-10) mg/dl 07/12/18 07/12/18 Range/Units 07:00 07:00 WBC 10.6 D (4.8-10.8) K/uL RBC 4.58 (4.40-5.90) Mil/uL Hgb 14.6 (12.0-18.0) g/dL Hct 43.9 (35.0-51.0) % MCV 95.9 H (80.0-94.0) fl MCH 31.9 H (27.0-31.0) pg MCHC 33.2 (33.0-37.0) g/dL RDW 12.8 (11.5-14.5) % Plt Count 286 (130-400) K/uL MPV 8.8 (7.2-11.7) fl Neut % (Auto) 72.2 (50.0-75.0) % Lymph % (Auto) 14.6 L (20.0-40.0) % [place] % (Auto) 11.6 H (0.0-10.0) % Eos % (Auto) 0.7 (0.0-4.0) % Baso % (Auto) 0.9 (0.0-2.0) % Neut # (Auto) 7.7 H (1.8-7.0) K/uL Lymph # (Auto) 1.6 (1.0-4.3) K/uL [place] # (Auto) 1.2 H (0.0-0.8) K/uL Eos # (Auto) 0.1 (0.0-0.7) K/uL Baso # (Auto) 0.1 (0.0-0.2) K/uL PT (9.8-13.1) Seconds INR APTT (25.6-37.1) Seconds Sodium 140 (132-148) mmol/l Potassium 3.9 (3.6-5.0) MMOL/L Chloride 97 L (98-107) mmol/L Carbon Dioxide 29 (22-30) mmol/L Anion Gap 18 (10-20) BUN 17 (9-20) mg/dl Creatinine 0.7 L (0.8-1.5) mg/dl Est GFR ( Amer) > 60 Est GFR (Non-Af Amer) > 60 Random Glucose 107 (75-110) mg/dL Calcium 9.6 (8.4-10.2) mg/dL Total Bilirubin (0.2-1.3) mg/dl AST (17-59) U/L ALT (21-72) U/L Alkaline Phosphatase (38-126) U/L Total Protein (6.3-8.2) G/DL Albumin (3.5-5.0) g/dL Globulin (2.2-3.9) gm/dL Albumin/Globulin Ratio (1.0-2.1) Alcohol, Quantitative 51 H (0-10) mg/dl Laboratory Results - last 24 hr 07/12/18 07/12/18 07/12/18 07:00 07:00 07:45 WBC 10.6 D RBC 4.58 Hgb 14.6 Hct 43.9 MCV 95.9 H MCH 31.9 H MCHC 33.2 RDW 12.8 Plt Count 286 MPV 8.8 Neut % (Auto) 72.2 Lymph % (Auto) 14.6 L [place] % (Auto) 11.6 H Eos % (Auto) 0.7 Baso % (Auto) 0.9 Neut # (Auto) 7.7 H Lymph # (Auto) 1.6 [place] # (Auto) 1.2 H Eos # (Auto) 0.1 Baso # (Auto) 0.1 PT 11.8 INR 1.0 APTT 32.2 Sodium 140 Potassium 3.9 Chloride 97 L Carbon Dioxide 29 Anion Gap 18 BUN 17 Creatinine 0.7 L Est GFR ( Amer) > 60 Est GFR (Non-Af Amer) > 60 Random Glucose 107 Calcium 9.6 Total Bilirubin AST ALT Alkaline Phosphatase Total Protein Albumin Globulin Albumin/Globulin Ratio Alcohol, Quantitative 51 H 07/13/18 07/13/18 05:00 05:00 WBC 10.7 RBC 4.39 L Hgb 14.6 Hct 42.5 MCV 96.7 H MCH 33.3 H MCHC 34.4 RDW 12.8 Plt Count 262 MPV Neut % (Auto) Lymph % (Auto) [place] % (Auto) Eos % (Auto) Baso % (Auto) Neut # (Auto) Lymph # (Auto) [place] # (Auto) Eos # (Auto) Baso # (Auto) PT INR APTT Sodium 132 Potassium 4.2 Chloride 94 L Carbon Dioxide 27 Anion Gap 15 BUN 15 Creatinine 0.6 L Est GFR ( Amer) > 60 Est GFR (Non-Af Amer) > 60 Random Glucose 122 H Calcium 9.4 Total Bilirubin 0.9 AST 49 ALT 50 Alkaline Phosphatase 101 Total Protein 7.9 Albumin 3.9 Globulin 4.0 H Albumin/Globulin Ratio 1.0 Alcohol, Quantitative Radiology Impressions: Radiology Impressions Chest X-Ray 07/12/18 06:46 IMPRESSION: New large left lateral pole of versus loculated pneumothorax. Mild mediastinal shift to the right. Stable large medial biapical bullae. Chest X-Ray 07/12/18 09:00 IMPRESSION: Decompression of large left lateral midpole of versus pneumothorax post chest tube insertion. No other significant interval change.
[2018-07-13] MEDS: Enoxaparin 40 mg Syringe SC SCH (08:36)
--- NOTE | 2018-07-13 11:01 | CT ---
Date of service: 07/13/2018 PROCEDURE: CT Chest without contrast HISTORY: COPD spont pneumothorax COMPARISON: Chest radiograph dated 07/12/2018 TECHNIQUE: Contiguous axial images were obtained through the chest without intravenous contrast enhancement. Sagittal and coronal reconstructions were performed. Radiation dose: Total exam DLP = 312.77 mGy-cm. This CT exam was performed using one or more of the following dose reduction techniques: Automated exposure control, adjustment of the mA and/or kV according to patient size, and/or use of iterative reconstruction technique. FINDINGS: LUNGS: Extensive centrilobular and paraseptal emphysema with extensive and large bullae seen bilaterally. Large left lower lobe consolidation and/or atelectasis. MEDIASTINUM: Unremarkable thoracic aorta. No aneurysm. Normal sized heart. Main pulmonary artery unremarkable. No vascular congestion. Multiple shotty mediastinal lymph nodes. No aortic atherosclerotic calcification. PLEURA: Left-sided large-bore chest tube with tip terminating posterior left upper lung. BONES: No fracture. No destructive lesion. UPPER ABDOMEN: Large left interpolar cyst.. OTHER FINDINGS: None. IMPRESSION: Extensive centrilobular and paraseptal emphysema with large bullae seen bilaterally. Left-sided large-bore chest tube without evidence of pneumothorax. Remains unclear whether there was a pneumothorax or a very large bulla in this region. Large left lower lobe consolidation and/or atelectasis.
--- NOTE | 2018-07-13 11:12 | RAD ---
Date of service: 07/13/2018 HISTORY: f/u chest tube for L PTX COMPARISON: Chest radiograph dated 07/12/2018. FINDINGS: LUNGS: Stable appearance large medial biapical bullae. Large left lower lobe consolidation and/or atelectasis. PLEURA: Left-sided large-bore chest tube. No pneumothorax. CARDIOVASCULAR: Aortic atherosclerotic calcifications. Cardiomediastinal silhouette stably enlarged. OSSEOUS STRUCTURES: Unchanged. VISUALIZED UPPER ABDOMEN: Normal. OTHER FINDINGS: None. IMPRESSION: Left-sided chest tube in place. No pneumothorax. No significant interval change.
[2018-07-13] MEDS ORDERED: Tobramycin Sulfate 40 mg/ml (2ml) Inj IVPB SCH (13:15)
[2018-07-13] MEDS ORDERED: TOBRAMYCIN SULFATE IVPB SCH (13:30)
[2018-07-13] MEDS ORDERED: SODIUM CHLORIDE 0.9% IVPB SCH (13:30)
[2018-07-13] MEDS: Cefepime 2 GM in Sodium Chloride 0.9% 100 ML IVPB SCH ×2 (14:35→20:59)
[2018-07-13] MEDS: Azithromycin 500 MG in Sodium Chloride 0.9% 250 ML IVPB SCH (14:36)
[2018-07-13] MEDS: SODIUM CHLORIDE 0.9% IVPB SCH (16:28)
[2018-07-13] MEDS: TOBRAMYCIN SULFATE IVPB SCH (16:28)
[2018-07-13 17:17] LABS: SQUAMOUS EPITHIAL 1 /hpf (0-5); URINE BILIRUBIN NEGATIVE (NEGATIVE); URINE BLOOD NEGATIVE (NEGATIVE); URINE CLARITY CLEAR (Clear); URINE COLOR YELLOW (YELLOW); URINE GLUCOSE (UA) NEG (NEGATIVE); URINE LEUKOCYTE ESTERASE NEG Leu/uL (Negative); URINE PROTEIN NEGATIVE (NEGATIVE)
[2018-07-13 17:33] LABS: BARBITURATES, UR NEGATIVE (NEGATIVE); BENZODIAZEPINES, UR POSITIVE (NEGATIVE); OPIATES, UR POSITIVE (NEGATIVE); PHENCYCLIDINE, UR NEGATIVE (NEGATIVE)
[2018-07-13] MEDS ORDERED: Cefepime 2 GM in Sodium Chloride 0.9% 100 ML IVPB SCH (21:00)
--- NOTE | 2018-07-14 01:33 | CP.PCM.PN ---
Subjective - Date & Time of Evaluation Date of Evaluation: 07/13/18 Time of Evaluation: 13:30 - Subjective Subjective: Pt seen and assessed at bedside. Reports breathing better s/p left chest tube insertion yesterday. Pt however has a persistent cough and thickened oral secretions. New onset fever has been reported as per staff, sputum culture is pending. Review of Systems - Review of Systems All systems: reviewed and no additional remarkable complaints except (cough and thick sputum) Objective - Vital Signs/Intake and Output Vital Signs (last 24 hours): Temp Pulse Resp BP Pulse Ox 98.4 F 92 H 30 H 132/87 100 07/13/18 16:00 07/13/18 17:52 07/13/18 17:52 07/13/18 17:52 07/13/18 17:52 Intake and Output: 07/13/18 07/14/18 18:59 06:59 Intake Total 1200 Output Total 1060 Balance 140 - Medications Medications: Current Medications Acetaminophen (Tylenol 325mg Tab) 650 mg PO Q4 PRN PRN Reason: Pain, Mild (1-3) Acetaminophen (Tylenol 325mg Tab) 650 mg PO Q6 PRN PRN Reason: Fever >100.4 F Last Admin: 07/13/18 13:02 Dose: 650 mg Albuterol/Ipratropium (Duoneb 3 Mg/0.5 Mg (3 Ml) Ud) 3 ml INH RQID [facility] Last Admin: 07/13/18 19:25 Dose: 3 ml Amlodipine Besylate (Norvasc) 5 mg PO DAILY [facility] Last Admin: 07/13/18 08:36 Dose: 5 mg Chlordiazepoxide (Librium) 50 mg PO Q8 [facility] Last Admin: 07/14/18 00:51 Dose: 50 mg Enoxaparin Sodium (Lovenox) 40 mg SC DAILY [facility]; Protocol Last Admin: 07/13/18 08:36 Dose: 40 mg Folic Acid (Folic Acid) 1 mg PO DAILY [facility] Last Admin: 07/13/18 08:35 Dose: 1 mg Azithromycin 500 mg/ Sodium (Chloride) 250 mls @ 250 mls/hr IVPB DAILY [facility]; Protocol Last Admin: 07/13/18 14:36 Dose: 250 mls/hr Cefepime HCl 2 gm/ Sodium (Chloride) 100 mls @ 100 mls/hr IVPB Q12 [facility]; Protocol Last Admin: 07/13/18 20:59 Dose: 100 mls/hr Tobramycin Sulfate 365 mg/ (Sodium Chloride) 259.125 mls @ 259.125 mls/hr IVPB DAILY@1400 [facility] Last Admin: 07/13/18 16:28 Dose: 259.125 mls/hr Morphine Sulfate (Morphine) 2 mg IVP Q4 PRN PRN Reason: Pain, moderate (4-7) Last Admin: 07/14/18 00:50 Dose: 2 mg Nicotine (Nicoderm Cq) 1 patch TD DAILY [facility] Last Admin: 07/13/18 08:37 Dose: 1 patch Thiamine HCl (Vitamin B1 Tab) 100 mg PO DAILY [facility] Last Admin: 07/13/18 08:35 Dose: 100 mg - Labs Labs: 07/13/18 05:00 07/13/18 05:00 PT 11.8 Seconds (9.8-13.1) 07/12/18 07:45 INR 1.0 07/12/18 07:45 APTT 32.2 Seconds (25.6-37.1) 07/12/18 07:45 - Constitutional Appears: Older Than Stated Age - Head Exam Head Exam: ATRAUMATIC, NORMAL INSPECTION, NORMOCEPHALIC - Eye Exam Eye Exam: EOMI, Normal appearance, PERRL Pupil Exam: NORMAL ACCOMODATION, PERRL - ENT Exam ENT Exam: Mucous Membranes Moist, Normal Exam - Neck Exam Neck Exam: Full ROM, Normal Inspection - Respiratory Exam Respiratory Exam: Decreased Breath Sounds Additional comments: left sided chest tube in place to water suction. - Cardiovascular Exam Cardiovascular Exam: REGULAR RHYTHM, +S1, +S2 - GI/Abdominal Exam GI & Abdominal Exam: Soft, Normal Bowel Sounds - Extremities Exam Extremities Exam: Normal Capillary Refill, Normal Inspection - Back Exam Back Exam: Full ROM, NORMAL INSPECTION - Neurological Exam Neurological Exam: Alert, Awake, CN II-XII Intact - Psychiatric Exam Psychiatric exam: Normal Affect, Normal Mood - Skin Skin Exam: Dry, Warm Additional comments: scabies lesions throughout trunk and bilateral upper extremities. Assessment and Plan (1) Tension pneumothorax, spontaneous Assessment & Plan: 1.) Spontaneous pneumothorax -left chest tube maintained to water suction; no new complaints, respiratory status stable at this time. -Most recent CXR revealed: No pneumothorax. Stable large, medial, biapical bullae. -Thick secretions and new onset fever noted, sputum culture is pending. Pt to be started on antibiotics. -consults input appreciated. -continue current tx. Status: Acute (2) Alcohol abuse Status: Acute
[2018-07-14 04:41] LABS: ALB/GLOB RATIO 0.9 (1.0-2.1); ALBUMIN 3.7 g/dL (3.5-5.0); ALT/SGPT 40 U/L (21-72); AST/SGOT 41 U/L (17-59); BLOOD UREA NITROGEN 15 mg/dl (9-20); CALCIUM 9.3 mg/dL (8.4-10.2); GFR NON-AFRICAN AMERICAN > 60
[2018-07-14 04:55] LABS: BASO # 0.1 K/uL (0.0-0.2); BASO % 0.7 % (0.0-2.0); EOS # 0.1 K/uL (0.0-0.7); EOS % 0.6 % (0.0-4.0); HEMOGLOBIN 14.2 g/dL (12.0-18.0); LYMPH % 14.4 % (20.0-40.0); MEAN CELL VOLUME 96.6 fl (80.0-94.0); MEAN CORPUSCULAR HEMOGLOBIN 31.8 pg (27.0-31.0); MEAN CORPUSCULAR HGB CONC 32.9 g/dL (33.0-37.0); MEAN PLATELET VOLUME 8.9 fl (7.2-11.7); MONO # 1.7 K/uL (0.0-0.8); MONO % 12.2 % (0.0-10.0); NEUT # 9.9 K/uL (1.8-7.0); NEUT % 72.1 % (50.0-75.0); RBC 4.46 Mil/uL (4.40-5.90); RED CELL DISTRIBUTION WIDTH 12.9 % (11.5-14.5); WHITE BLOOD COUNT 13.7 K/uL (4.8-10.8)
[2018-07-14] MEDS: Albuterol-Ipratrop 3 mg / 0.5 (3 ml) UD INH SCH ×4 (07:00→19:14)
[2018-07-14] MEDS: Enoxaparin 40 mg Syringe SC SCH (08:49)
[2018-07-14] MEDS: Cefepime 2 GM in Sodium Chloride 0.9% 100 ML IVPB SCH ×2 (08:50→21:00)
[2018-07-14] MEDS: Azithromycin 500 MG in Sodium Chloride 0.9% 250 ML IVPB SCH (08:53)
--- NOTE | 2018-07-14 09:18 | CP.CCUPN ---
CCU Subjective - Physician Review Subjective (Free Text): 07/15/18 07:20 The patient was Seen/interviewed and examined by me at the bedside during ICU round, Medical records reviewed and Management issues were discussed and formulated with the house staff. Events reviewed Patient is 58 years old male with past medical history of hypertension and depression who initially presented to the emergency room with complaint of worsening cough over the past 1 week, no fever chills shortness of breath or hem optysis He was admitted to the intensive care unit with acute respiratory insufficiency secondary to left pneumothorax Currently has left sided chest tube that is connected to wall suction Today he is doing well chest pain resolved Chest x-ray this morning showing pneumothorax has resolved Scheduled for Chest CT scan today Denies any chest pain, fever/chills, shortness of breath or Palpitations Afebrile, NSR on the monitor Adequate saturation of 95-96% on nasal cannula CCU Objective - Vital Signs / Intake & Output Vital Signs (Last 4 hours): Vital Signs Temp Pulse Resp BP Pulse Ox 07/14/18 08:51 93 H 124/75 07/14/18 08:00 100.4 F H 99 H 20 124/75 90 L 07/14/18 06:00 97.8 F 88 34 H 141/91 H 97 Intake and Output (Last 8hrs): Intake & Output 07/13/18 07/14/18 07/14/18 22:59 06:59 14:59 Intake Total 650 540 Output Total 360 30 400 Balance 290 510 -400 Weight 158 lb 11.2 oz Intake: IV 500 Intake, Piggyback 300 Oral 150 240 Output: Chest Tube Drainage 10 30 Left Lateral Chest 10 30 Urine 350 400 Urine, Voided 350 400 Other: # Voids Urine, Voided 1 4 # Bowel Movements 1 - Physical Exam Head: Positive for: Atraumatic, Normocephalic Pupils: Positive for: PERRL Extroacular Muscles: Positive for: EOMI Conjunctiva: Positive for: Normal Mouth: Positive for: Moist Mucous Membranes Neck: Positive for: Normal Range of Motion, Trachea Midline. Negative for: Meningeal Signs, MIDLINE TENDERNESS, Paraspinal Tenderness, JVD, Lymphadenopathy, Bruit, Other Respiratory/Chest: Positive for: Clear to Auscultation, Good Air Exchange. Negative for: Respiratory Distress, Accessory Muscle Use, Decreased Breath Sounds, Rales, Retracting, Rhonchi Cardiovascular: Positive for: Regular Rate and Rhythm, Normal S1, S2, Peripheal Pulses Present. Negative for: Murmurs, Tachycardic, Bradycardic Abdomen: Positive for: Normal Bowel Sounds. Negative for: Tenderness, Distention, Peritoneal Signs Neurological: Positive for: GCS=15, CN II-XII Intact, Speech Normal, Motor Func Grossly Intact, Normal Sensory Function Psychiatric: Positive for: Alert, Oriented x 3 - Medications Active Medications: Active Medications Generic Name Dose Route Start Last Admin Trade Name Freq PRN Reason Stop Dose Admin Acetaminophen 650 mg 07/12/18 12:35 07/14/18 08:33 Tylenol 325mg Tab PO 650 mg Q4 PRN Administration Pain, Mild (1-3) Acetaminophen 650 mg 07/13/18 12:25 07/13/18 13:02 Tylenol 325mg Tab PO 650 mg Q6 PRN Administration Fever >100.4 F Albuterol/Ipratropium 3 ml 07/12/18 16:00 07/14/18 07:00 Duoneb 3 Mg/0.5 Mg (3 Ml) Ud INH 3 ml RQID [facility] Administration Amlodipine Besylate 5 mg 07/13/18 09:00 07/14/18 08:51 Norvasc PO 5 mg DAILY [facility] Administration Chlordiazepoxide 50 mg 07/12/18 17:00 07/14/18 08:49 Librium PO 50 mg Q8 [facility] Administration Enoxaparin Sodium 40 mg 07/12/18 15:15 07/14/18 08:49 Lovenox SC 40 mg DAILY [facility] Administration Protocol Folic Acid 1 mg 07/12/18 12:45 07/14/18 08:47 Folic Acid PO 1 mg DAILY [facility] Administration Azithromycin 500 mg/ Sodium 250 mls @ 250 mls/hr 07/13/18 13:30 07/14/18 08:53 Chloride IVPB 250 mls/hr DAILY [facility] Administration Protocol Cefepime HCl 2 gm/ Sodium 100 mls @ 100 mls/hr 07/13/18 13:22 07/14/18 08:50 Chloride IVPB 100 mls/hr Q12 [facility] Administration Protocol Tobramycin Sulfate 365 mg/ 259.125 mls @ 259.125 mls/hr 07/13/18 14:00 07/13/18 16:28 Sodium Chloride IVPB 259.125 mls/hr DAILY@1400 [facility] Administration Morphine Sulfate 2 mg 07/12/18 12:35 07/14/18 08:31 Morphine IVP 2 mg Q4 PRN Administration Pain, moderate (4-7) Nicotine 1 patch 07/12/18 12:45 07/14/18 08:51 Nicoderm Cq TD 1 patch DAILY [facility] Administration Thiamine HCl 100 mg 07/12/18 12:45 07/14/18 08:54 Vitamin B1 Tab PO 100 mg DAILY [facility] Administration - Patient Studies Lab Studies: Microbiology Studies 07/13/18 13:13 Gram Stain - Final Sputum 07/12/18 10:58 MRSA Culture (Admit) - Final Nose MRSA NOT DETECTED Lab Studies 07/14/18 07/14/18 07/13/18 Range/Units 04:06 04:06 16:30 WBC 13.7 H (4.8-10.8) K/uL RBC 4.46 (4.40-5.90) Mil/uL Hgb 14.2 (12.0-18.0) g/dL Hct 43.1 (35.0-51.0) % MCV 96.6 H (80.0-94.0) fl MCH 31.8 H (27.0-31.0) pg MCHC 32.9 L (33.0-37.0) g/dL RDW 12.9 (11.5-14.5) % Plt Count 273 (130-400) K/uL MPV 8.9 (7.2-11.7) fl Neut % (Auto) 72.1 (50.0-75.0) % Lymph % (Auto) 14.4 L (20.0-40.0) % Meagher % (Auto) 12.2 H (0.0-10.0) % Eos % (Auto) 0.6 (0.0-4.0) % Baso % (Auto) 0.7 (0.0-2.0) % Neut # (Auto) 9.9 H (1.8-7.0) K/uL Lymph # (Auto) 2.0 (1.0-4.3) K/uL Meagher # (Auto) 1.7 H (0.0-0.8) K/uL Eos # (Auto) 0.1 (0.0-0.7) K/uL Baso # (Auto) 0.1 (0.0-0.2) K/uL Sodium 133 (132-148) mmol/l Potassium 4.5 (3.6-5.0) MMOL/L Chloride 93 L (98-107) mmol/L Carbon Dioxide 27 (22-30) mmol/L Anion Gap 18 (10-20) BUN 15 (9-20) mg/dl Creatinine 0.9 (0.8-1.5) mg/dl Est GFR ( Amer) > 60 Est GFR (Non-Af Amer) > 60 Random Glucose 101 (75-110) mg/dL Calcium 9.3 (8.4-10.2) mg/dL Total Bilirubin 1.0 (0.2-1.3) mg/dl AST 41 (17-59) U/L ALT 40 (21-72) U/L Alkaline Phosphatase 90 (38-126) U/L Total Protein 7.8 (6.3-8.2) G/DL Albumin 3.7 (3.5-5.0) g/dL Globulin 4.1 H (2.2-3.9) gm/dL Albumin/Globulin Ratio 0.9 L (1.0-2.1) Urine Color (YELLOW) Urine Clarity (Clear) Urine pH (5.0-8.0) Ur Specific [place] (1.003-1.030) Urine Protein (NEGATIVE) mg/dL Urine Glucose (UA) (NEGATIVE) mg/dL Urine Ketones (NEGATIVE) mg/dL Urine Blood (NEGATIVE) Urine Nitrate (NEGATIVE) Urine Bilirubin (NEGATIVE) Urine Urobilinogen (0.2-1.0) mg/dL Ur Leukocyte Esterase (Negative) Opal/uL Urine RBC (Auto) (0-3) /hpf Urine Microscopic WBC (0-5) /hpf Ur Squamous Epith Cells (0-5) /hpf Urine Opiates Screen Positive H (NEGATIVE) Urine Methadone Screen Negative (NEGATIVE) Ur Barbiturates Screen Negative (NEGATIVE) Ur Phencyclidine Scrn Negative (NEGATIVE) Ur Amphetamines Screen Negative (NEGATIVE) U Benzodiazepines Scrn Positive (NEGATIVE) U Oth Cocaine Metabols Positive H (NEGATIVE) U Cannabinoids Screen Negative (NEGATIVE) 07/13/18 Range/Units 16:30 WBC (4.8-10.8) K/uL RBC (4.40-5.90) Mil/uL Hgb (12.0-18.0) g/dL Hct (35.0-51.0) % MCV (80.0-94.0) fl MCH (27.0-31.0) pg MCHC (33.0-37.0) g/dL RDW (11.5-14.5) % Plt Count (130-400) K/uL MPV (7.2-11.7) fl Neut % (Auto) (50.0-75.0) % Lymph % (Auto) (20.0-40.0) % Meagher % (Auto) (0.0-10.0) % Eos % (Auto) (0.0-4.0) % Baso % (Auto) (0.0-2.0) % Neut # (Auto) (1.8-7.0) K/uL Lymph # (Auto) (1.0-4.3) K/uL Meagher # (Auto) (0.0-0.8) K/uL Eos # (Auto) (0.0-0.7) K/uL Baso # (Auto) (0.0-0.2) K/uL Sodium (132-148) mmol/l Potassium (3.6-5.0) MMOL/L Chloride (98-107) mmol/L Carbon Dioxide (22-30) mmol/L Anion Gap (10-20) BUN (9-20) mg/dl Creatinine (0.8-1.5) mg/dl Est GFR ( Amer) Est GFR (Non-Af Amer) Random Glucose (75-110) mg/dL Calcium (8.4-10.2) mg/dL Total Bilirubin (0.2-1.3) mg/dl AST (17-59) U/L ALT (21-72) U/L Alkaline Phosphatase (38-126) U/L Total Protein (6.3-8.2) G/DL Albumin (3.5-5.0) g/dL Globulin (2.2-3.9) gm/dL Albumin/Globulin Ratio (1.0-2.1) Urine Color Yellow (YELLOW) Urine Clarity Clear (Clear) Urine pH 7.0 (5.0-8.0) Ur Specific [place] 1.017 (1.003-1.030) Urine Protein Negative (NEGATIVE) mg/dL Urine Glucose (UA) Neg (NEGATIVE) mg/dL Urine Ketones Negative (NEGATIVE) mg/dL Urine Blood Negative (NEGATIVE) Urine Nitrate Negative (NEGATIVE) Urine Bilirubin Negative (NEGATIVE) Urine Urobilinogen 4.0 (0.2-1.0) mg/dL Ur Leukocyte Esterase Neg (Negative) Opal/uL Urine RBC (Auto) < 1 (0-3) /hpf Urine Microscopic WBC 2 (0-5) /hpf Ur Squamous Epith Cells 1 (0-5) /hpf Urine Opiates Screen (NEGATIVE) Urine Methadone Screen (NEGATIVE) Ur Barbiturates Screen (NEGATIVE) Ur Phencyclidine Scrn (NEGATIVE) Ur Amphetamines Screen (NEGATIVE) U Benzodiazepines Scrn (NEGATIVE) U Oth Cocaine Metabols (NEGATIVE) U Cannabinoids Screen (NEGATIVE) Laboratory Results - last 24 hr 07/13/18 07/13/18 07/14/18 16:30 16:30 04:06 WBC 13.7 H RBC 4.46 Hgb 14.2 Hct 43.1 MCV 96.6 H MCH 31.8 H MCHC 32.9 L RDW 12.9 Plt Count 273 MPV 8.9 Neut % (Auto) 72.1 Lymph % (Auto) 14.4 L Meagher % (Auto) 12.2 H Eos % (Auto) 0.6 Baso % (Auto) 0.7 Neut # (Auto) 9.9 H Lymph # (Auto) 2.0 Meagher # (Auto) 1.7 H Eos # (Auto) 0.1 Baso # (Auto) 0.1 Sodium Potassium Chloride Carbon Dioxide Anion Gap BUN Creatinine Est GFR ( Amer) Est GFR (Non-Af Amer) Random Glucose Calcium Total Bilirubin AST ALT Alkaline Phosphatase Total Protein Albumin Globulin Albumin/Globulin Ratio Urine Color Yellow Urine Clarity Clear Urine pH 7.0 Ur Specific [place] 1.017 Urine Protein Negative Urine Glucose (UA) Neg Urine Ketones Negative Urine Blood Negative Urine Nitrate Negative Urine Bilirubin Negative Urine Urobilinogen 4.0 Ur Leukocyte Esterase Neg Urine RBC (Auto) < 1 Urine Microscopic WBC 2 Ur Squamous Epith Cells 1 Urine Opiates Screen Positive H Urine Methadone Screen Negative Ur Barbiturates Screen Negative Ur Phencyclidine Scrn Negative Ur Amphetamines Screen Negative U Benzodiazepines Scrn Positive U Oth Cocaine Metabols Positive H U Cannabinoids Screen Negative 07/14/18 04:06 WBC RBC Hgb Hct MCV MCH MCHC RDW Plt Count MPV Neut % (Auto) Lymph % (Auto) Meagher % (Auto) Eos % (Auto) Baso % (Auto) Neut # (Auto) Lymph # (Auto) Meagher # (Auto) Eos # (Auto) Baso # (Auto) Sodium 133 Potassium 4.5 Chloride 93 L Carbon Dioxide 27 Anion Gap 18 BUN 15 Creatinine 0.9 Est GFR ( Amer) > 60 Est GFR (Non-Af Amer) > 60 Random Glucose 101 Calcium 9.3 Total Bilirubin 1.0 AST 41 ALT 40 Alkaline Phosphatase 90 Total Protein 7.8 Albumin 3.7 Globulin 4.1 H Albumin/Globulin Ratio 0.9 L Urine Color Urine Clarity Urine pH Ur Specific [place] Urine Protein Urine Glucose (UA) Urine Ketones Urine Blood Urine Nitrate Urine Bilirubin Urine Urobilinogen Ur Leukocyte Esterase Urine RBC (Auto) Urine Microscopic WBC Ur Squamous Epith Cells Urine Opiates Screen Urine Methadone Screen Ur Barbiturates Screen Ur Phencyclidine Scrn Ur Amphetamines Screen U Benzodiazepines Scrn U Oth Cocaine Metabols U Cannabinoids Screen Radiology Impressions: Radiology Impressions Chest CT 07/12/18 08:26 IMPRESSION: Extensive centrilobular and paraseptal emphysema with large bullae seen bilaterally. Left-sided large-bore chest tube without evidence of pneumothorax. Remains unclear whether there was a pneumothorax or a very large bulla in this region. Large left lower lobe consolidation and/or atelectasis. Chest X-Ray 07/13/18 06:00 IMPRESSION: Left-sided chest tube in place. No pneumothorax. No significant interval change. Review of Systems - Cardiovascular Cardiovascular: absent: As Per HPI, Acrocyanosis, Chest Pain, Chest Pain at Rest, Chest Pain with Activity, Claudication, Diaphoresis, Dyspnea, Dyspnea on Exertion, Edema, Irregular Heart Rhythm, Pain Radiating to Arm/Neck/Jaw, Leg Edema, Leg Ulcers, Lightheadedness, Orthopnea, Palpitations, Paroxysmal Nocturnal Dyspnea, Pedal Edema, Radiating Pain, Rapid Heart Rate, Slow Heart Rate, Syncope, Other, UNREMARKABLE - Respiratory Respiratory: absent: As Per HPI, Cough, Dyspnea, Hemoptysis, Dyspnea on Exertion, Wheezing, Snoring, Stridor, Pain on Inspiration, Chest Congestion, Excessive Mucous Production, Change in Mucous Color, Pain with Coughing, Other, UNREMARKABLE Critical Care Progress Note - Extremities/Vascular Does the Patient have a Central Venous Catheter?: No Does the Patient need a Central Venous Catheter?: No Does the Patient have a Bourne Catheter?: No Does the Patient need a Bourne Catheter?: No - Nutrition Nutrition: Nutrition Category Date Time Status Regular Diet [DIET] Diets 07/12/18 Lunch Active Assessment/Plan (1) Substance abuse Current Visit: Yes Status: Acute Priority: High (2) Moderate COPD (chronic obstructive pulmonary disease) Current Visit: Yes Status: Acute Priority: High (3) Tension pneumothorax, spontaneous Current Visit: Yes Status: Acute Priority: High (4) Alcohol abuse Current Visit: No Status: Acute Priority: High
--- NOTE | 2018-07-14 09:23 | RAD ---
Date of service: 07/14/2018 HISTORY: pneumothorax COMPARISON: Portable chest 07/13/2018. FINDINGS: LUNGS: COPD/pulmonary fibrosis reiterated with gross bullous changes at the medial apices bilaterally once again. Left pneumothorax is resolved once again with left chest tube unchanged in position. PLEURA: Trace left pleural effusion. None is seen at the right. No pneumothorax bilaterally. CARDIOVASCULAR: Calcific atherosclerotic changes are seen related to the thoracic aorta. Stable cardiomegaly. No pulmonary vascular congestion. OSSEOUS STRUCTURES: No significant abnormalities. VISUALIZED UPPER ABDOMEN: Normal. OTHER FINDINGS: None. IMPRESSION: Left chest tube unchanged in position with no interval pneumothorax. Gross biapical bulla reiterated with pulmonary fibrosis again seen bilaterally with both findings reflective of COPD. Stable cardiomegaly.
[2018-07-14] MEDS: SODIUM CHLORIDE 0.9% IVPB SCH (14:25)
[2018-07-14] MEDS: TOBRAMYCIN SULFATE IVPB SCH (14:25)
--- NOTE | 2018-07-14 16:07 | CT ---
Date of service: 07/14/2018 PROCEDURE: CT Chest without contrast HISTORY: Eval with chest tube on suction COMPARISON: July 13, 2018. CT thorax TECHNIQUE: Contiguous axial images were obtained through the chest without intravenous contrast enhancement. Sagittal and coronal reconstructions were performed. Radiation dose: Total exam DLP = 341.74 mGy-cm. This CT exam was performed using one or more of the following dose reduction techniques: Automated exposure control, adjustment of the mA and/or kV according to patient size, and/or use of iterative reconstruction technique. FINDINGS: LUNGS: Severe emphysematous changes. The upper lobes are dominated by large pole of. Progressive lower lobe infiltrates in particular left lower lobe. MEDIASTINUM: Unremarkable thoracic aorta. No aneurysm. Normal sized heart. Main pulmonary artery unremarkable. No vascular congestion. No lymphadenopathy. No aortic atherosclerotic calcification. PLEURA: Chest tube again identified the left pleural space. No pneumothorax. Stable position of the chest tube inserted via anterolateral approach. Tip is situated posteriorly and laterally. Small left pleural effusion is inseparable from dense consolidative changes left lower lobe. BONES: No fracture. No destructive lesion. UPPER ABDOMEN: Grossly unremarkable. OTHER FINDINGS: None. IMPRESSION: Stable position of chest tube in the left pleural space. No visible pneumothorax. Progressive lower lobe infiltrates particularly left lower lobe. Underlying severe emphysematous change with bullous formation unchanged compared to the prior study
--- NOTE | 2018-07-14 18:37 | CP.PCM.PN ---
Subjective - Date & Time of Evaluation Date of Evaluation: 07/14/18 Time of Evaluation: 10:30 - Subjective Subjective: patient seen and examined at bedside. Interim events noted No complaints offered at this time States improvement with chest tube denies cp/sob/fever/chills. available diagnostic data reviewed Review of Systems All systems: reviewed and no additional remarkable complaints except mentioned above Objective Vital Signs Stable - Constitutional Appears: Non-toxic, No Acute Distress Head Exam: NORMAL INSPECTION Eye Exam: Normal appearance Respiratory Exam: NORMAL BREATHING PATTERN Cardiovascular Exam: +S1, +S2 GI & Abdominal Exam: Soft Neurological Exam: Alert, Awake Psychiatric exam: Normal Affect, Normal Mood Skin Exam: Normal Color, Warm Assessment and Plan monitor vitals monitor labs Cont meds Cont tx consultants appreciated input rest of plan as ordered Assessment and Plan (1) Tension pneumothorax, spontaneous Status: Acute (2) Pneumonia Status: Acute
[2018-07-15] MEDS: guaiFENesin 100 mg/5 ml Syrup UD PO PRN ×2 (02:13→21:19)
[2018-07-15 07:04] LABS: HEMOGLOBIN 15.4 g/dL (12.0-18.0); MEAN CELL VOLUME 95.7 fl (80.0-94.0); MEAN CORPUSCULAR HGB CONC 33.5 g/dL (33.0-37.0); RBC 4.81 Mil/uL (4.40-5.90); RED CELL DISTRIBUTION WIDTH 12.8 % (11.5-14.5); WHITE BLOOD COUNT 14.4 K/uL (4.8-10.8)
--- NOTE | 2018-07-15 07:13 | CP.PCM.PN ---
Subjective - Date & Time of Evaluation Date of Evaluation: 07/15/18 Time of Evaluation: 07:13 - Subjective Subjective: CT Sx: Dr Ramsey 58 y/o male patient seen and evaluated in ICU. Patient resting comfortably, and states pain has improved since yesterday. Patient denies any shortness of breath. CT in place, on suction, negative air leak noted, On non-cannula Objective - Vital Signs/Intake and Output Vital Signs (last 24 hours): Temp Pulse Resp BP Pulse Ox 98.2 F 82 18 121/85 96 07/15/18 06:00 07/15/18 06:00 07/15/18 06:00 07/15/18 06:00 07/15/18 06:00 Intake and Output: 07/15/18 07/15/18 06:59 18:59 Intake Total 100 Output Total 400 Balance -300 - Medications Medications: Current Medications Acetaminophen (Tylenol 325mg Tab) 650 mg PO Q4 PRN PRN Reason: Pain, Mild (1-3) Last Admin: 07/14/18 08:33 Dose: 650 mg Acetaminophen (Tylenol 325mg Tab) 650 mg PO Q6 PRN PRN Reason: Fever >100.4 F Last Admin: 07/13/18 13:02 Dose: 650 mg Albuterol/Ipratropium (Duoneb 3 Mg/0.5 Mg (3 Ml) Ud) 3 ml INH RQID [facility] Last Admin: 07/14/18 19:14 Dose: 3 ml Amlodipine Besylate (Norvasc) 5 mg PO DAILY [facility] Last Admin: 07/14/18 08:51 Dose: 5 mg Chlordiazepoxide (Librium) 25 mg PO Q8 [facility] Last Admin: 07/15/18 01:30 Dose: 25 mg Enoxaparin Sodium (Lovenox) 40 mg SC DAILY [facility]; Protocol Last Admin: 07/14/18 08:49 Dose: 40 mg Folic Acid (Folic Acid) 1 mg PO DAILY [facility] Last Admin: 07/14/18 08:47 Dose: 1 mg Guaifenesin (Robitussin) 100 mg PO Q6 PRN PRN Reason: Cough Last Admin: 07/15/18 02:13 Dose: 100 mg Azithromycin 500 mg/ Sodium (Chloride) 250 mls @ 250 mls/hr IVPB DAILY [facility]; Protocol Last Admin: 07/14/18 08:53 Dose: 250 mls/hr Cefepime HCl 2 gm/ Sodium (Chloride) 100 mls @ 100 mls/hr IVPB Q12 [facility]; Protocol Last Admin: 07/14/18 21:00 Dose: 100 mls/hr Tobramycin Sulfate 365 mg/ (Sodium Chloride) 259.125 mls @ 259.125 mls/hr IVPB DAILY@1400 [facility] Last Admin: 07/14/18 14:25 Dose: 259.125 mls/hr Morphine Sulfate (Morphine) 2 mg IVP Q4 PRN PRN Reason: Pain, moderate (4-7) Last Admin: 07/14/18 22:14 Dose: 2 mg Nicotine (Nicoderm Cq) 1 patch TD DAILY [facility] Last Admin: 07/14/18 08:51 Dose: 1 patch Thiamine HCl (Vitamin B1 Tab) 100 mg PO DAILY [facility] Last Admin: 07/14/18 08:54 Dose: 100 mg - Labs Labs: 07/15/18 06:50 07/14/18 04:06 PT 11.8 Seconds (9.8-13.1) 07/12/18 07:45 INR 1.0 07/12/18 07:45 APTT 32.2 Seconds (25.6-37.1) 07/12/18 07:45 - Constitutional Appears: Well, Non-toxic, No Acute Distress - Head Exam Head Exam: NORMAL INSPECTION - Respiratory Exam Respiratory Exam: absent: Accessory Muscle Use, Respiratory Distress - Cardiovascular Exam Cardiovascular Exam: REGULAR RHYTHM. absent: Tachycardia - GI/Abdominal Exam GI & Abdominal Exam: absent: Distended Assessment and Plan - Assessment and Plan (Free Text) Assessment: 58 y/o male with extensive bullous disease, s/p L thoracostomy tube for spontaneous pneumo Plan: continue Chest tube on water seal repeat CXR in the AM continue incentive spirometer will d/w atteding Brayan Carrasco, PGY1
[2018-07-15 07:18] LABS: ALB/GLOB RATIO 0.8 (1.0-2.1); ALBUMIN 3.6 g/dL (3.5-5.0); ALT/SGPT 28 U/L (21-72); AST/SGOT 35 U/L (17-59); BLOOD UREA NITROGEN 17 mg/dl (9-20); CALCIUM 9.9 mg/dL (8.4-10.2); GFR NON-AFRICAN AMERICAN > 60
[2018-07-15] MEDS: Albuterol-Ipratrop 3 mg / 0.5 (3 ml) UD INH SCH ×4 (08:20→19:18)
--- NOTE | 2018-07-15 08:29 | RAD ---
Date of service: 07/15/2018 HISTORY: protocol COMPARISON: Portable chest 07/14/2018. FINDINGS: LUNGS: Left chest tube unchanged in position. No definitive infiltrates bilaterally. Extensive COPD changes reiterated including fibrosis bilaterally. PLEURA: No significant pleural effusion identified, no pneumothorax apparent. CARDIOVASCULAR: Calcific atherosclerotic changes are seen related to the thoracic aorta. Normal cardiac size. No pulmonary vascular congestion. OSSEOUS STRUCTURES: No significant abnormalities. VISUALIZED UPPER ABDOMEN: Normal. OTHER FINDINGS: None. IMPRESSION: Left chest tube unchanged. No interval pneumothorax identified. Extensive COPD changes reiterated. No acute infiltrate or pulmonary vascular congestion appreciable.
[2018-07-15] MEDS: Enoxaparin 40 mg Syringe SC SCH (09:39)
[2018-07-15] MEDS: Cefepime 2 GM in Sodium Chloride 0.9% 100 ML IVPB SCH ×2 (09:39→21:18)
[2018-07-15] MEDS: Azithromycin 500 MG in Sodium Chloride 0.9% 250 ML IVPB SCH (09:52)
--- NOTE | 2018-07-15 11:42 | CP.CCUPN ---
CCU Subjective - Physician Review Subjective (Free Text): 07/15/18 11:41 The patient was Seen/interviewed and examined by me at the bedside during ICU round, Medical records reviewed and Management issues were discussed and formulated with the house staff. Events reviewed Patient is 58 years old male with past medical history of hypertension and depression who initially presented to the emergency room with complaint of worsening cough over the past 1 week, no fever chills shortness of breath or hem optysis He was admitted to the intensive care unit with acute respiratory insufficiency secondary to left spontanous pneumothorax Currently has left sided chest tube Chest CT scan 07/14 revealed Stable position of chest tube in the left pleural space. No visible pneumothorax. Progressive lower lobe infiltrates particularly left lower lobe. Underlying severe emphysematous change with bullous formation unchanged compared to the prior study This morning, He is feeling well, chest pain resolved Denies any chest pain, fever/chills, shortness of breath or Palpitations Afebrile, NSR on the monitor Adequate saturation of 95-96% on nasal cannula Chest x-ray this morning showing pneumothorax has resolved left sided chest tube that is switched to off suction Will repeat CXR OOB to chair Nebs Encouraged use of IS Pulmonary consult CCU Objective - Vital Signs / Intake & Output Vital Signs (Last 4 hours): Vital Signs Temp Pulse Resp BP Pulse Ox 07/15/18 10:00 98 H 22 120/83 96 07/15/18 09:38 99 H 123/88 07/15/18 08:00 97.8 F 90 25 H 94 L Intake and Output (Last 8hrs): Intake & Output 07/14/18 07/15/18 07/15/18 22:59 06:59 14:59 Intake Total 350 0 104 Output Total 80 400 200 Balance 270 -400 -96 Weight 141 lb Intake: IV 100 0 4 Intake, Piggyback 250 100 Output: Chest Tube Drainage 80 Left Lateral Chest 80 Urine 400 200 Urine, Voided 400 200 - Physical Exam Head: Positive for: Atraumatic, Normocephalic Pupils: Positive for: PERRL Extroacular Muscles: Positive for: EOMI Conjunctiva: Positive for: Normal Mouth: Positive for: Moist Mucous Membranes Neck: Positive for: Normal Range of Motion, Trachea Midline. Negative for: Meningeal Signs, MIDLINE TENDERNESS, Paraspinal Tenderness, JVD, Lymphadenopathy, Bruit, Other Respiratory/Chest: Positive for: Clear to Auscultation, Good Air Exchange. Negative for: Respiratory Distress, Accessory Muscle Use, Decreased Breath Sounds, Rales, Retracting, Rhonchi Cardiovascular: Positive for: Regular Rate and Rhythm, Normal S1, S2, Peripheal Pulses Present. Negative for: Murmurs, Tachycardic, Bradycardic Abdomen: Positive for: Normal Bowel Sounds. Negative for: Tenderness, Distention, Peritoneal Signs Neurological: Positive for: GCS=15, CN II-XII Intact, Speech Normal, Motor Func Grossly Intact, Normal Sensory Function Psychiatric: Positive for: Alert, Oriented x 3 - Medications Active Medications: Active Medications Generic Name Dose Route Start Last Admin Trade Name Freq PRN Reason Stop Dose Admin Acetaminophen 650 mg 07/12/18 12:35 07/14/18 08:33 Tylenol 325mg Tab PO 650 mg Q4 PRN Administration Pain, Mild (1-3) Acetaminophen 650 mg 07/13/18 12:25 07/13/18 13:02 Tylenol 325mg Tab PO 650 mg Q6 PRN Administration Fever >100.4 F Albuterol/Ipratropium 3 ml 07/12/18 16:00 07/15/18 11:11 Duoneb 3 Mg/0.5 Mg (3 Ml) Ud INH 3 ml RQID [facility] Administration Amlodipine Besylate 5 mg 07/13/18 09:00 07/15/18 09:38 Norvasc PO 5 mg DAILY [facility] Administration Chlordiazepoxide 25 mg 07/14/18 09:30 07/15/18 09:37 Librium PO 25 mg Q8 [facility] Administration Enoxaparin Sodium 40 mg 07/12/18 15:15 07/15/18 09:39 Lovenox SC 40 mg DAILY [facility] Administration Protocol Folic Acid 1 mg 07/12/18 12:45 07/15/18 09:39 Folic Acid PO 1 mg DAILY [facility] Administration Guaifenesin 100 mg 07/15/18 01:23 07/15/18 02:13 Robitussin PO 100 mg Q6 PRN Administration Cough Azithromycin 500 mg/ Sodium 250 mls @ 250 mls/hr 07/13/18 13:30 07/15/18 09:52 Chloride IVPB 250 mls/hr DAILY [facility] Administration Protocol Cefepime HCl 2 gm/ Sodium 100 mls @ 100 mls/hr 07/13/18 13:22 07/15/18 09:39 Chloride IVPB 100 mls/hr Q12 [facility] Administration Protocol Tobramycin Sulfate 365 mg/ 259.125 mls @ 259.125 mls/hr 07/13/18 14:00 07/14/18 14:25 Sodium Chloride IVPB 259.125 mls/hr DAILY@1400 [facility] Administration Morphine Sulfate 2 mg 07/12/18 12:35 07/15/18 09:36 Morphine IVP 2 mg Q4 PRN Administration Pain, moderate (4-7) Nicotine 1 patch 07/12/18 12:45 07/15/18 09:41 Nicoderm Cq TD 1 patch DAILY [facility] Administration Thiamine HCl 100 mg 07/12/18 12:45 07/15/18 09:38 Vitamin B1 Tab PO 100 mg DAILY [facility] Administration - Patient Studies Lab Studies: Microbiology Studies 07/13/18 16:30 Urine Culture - Final Urine Random No Growth (<1,000 CFU/ML) Lab Studies 07/15/18 07/15/18 Range/Units 06:50 06:50 WBC 14.4 H (4.8-10.8) K/uL RBC 4.81 (4.40-5.90) Mil/uL Hgb 15.4 (12.0-18.0) g/dL Hct 46.0 (35.0-51.0) % MCV 95.7 H (80.0-94.0) fl MCH 32.0 H (27.0-31.0) pg MCHC 33.5 (33.0-37.0) g/dL RDW 12.8 (11.5-14.5) % Plt Count 307 (130-400) K/uL Sodium 132 (132-148) mmol/l Potassium 4.7 (3.6-5.0) MMOL/L Chloride 94 L (98-107) mmol/L Carbon Dioxide 25 (22-30) mmol/L Anion Gap 18 (10-20) BUN 17 (9-20) mg/dl Creatinine 0.8 (0.8-1.5) mg/dl Est GFR ( Amer) > 60 Est GFR (Non-Af Amer) > 60 Random Glucose 104 (75-110) mg/dL Calcium 9.9 (8.4-10.2) mg/dL Total Bilirubin 0.8 (0.2-1.3) mg/dl AST 35 (17-59) U/L ALT 28 (21-72) U/L Alkaline Phosphatase 105 (38-126) U/L Total Protein 8.4 H (6.3-8.2) G/DL Albumin 3.6 (3.5-5.0) g/dL Globulin 4.8 H (2.2-3.9) gm/dL Albumin/Globulin Ratio 0.8 L (1.0-2.1) Laboratory Results - last 24 hr 07/15/18 07/15/18 06:50 06:50 WBC 14.4 H RBC 4.81 Hgb 15.4 Hct 46.0 MCV 95.7 H MCH 32.0 H MCHC 33.5 RDW 12.8 Plt Count 307 Sodium 132 Potassium 4.7 Chloride 94 L Carbon Dioxide 25 Anion Gap 18 BUN 17 Creatinine 0.8 Est GFR ( Amer) > 60 Est GFR (Non-Af Amer) > 60 Random Glucose 104 Calcium 9.9 Total Bilirubin 0.8 AST 35 ALT 28 Alkaline Phosphatase 105 Total Protein 8.4 H Albumin 3.6 Globulin 4.8 H Albumin/Globulin Ratio 0.8 L Radiology Impressions: Radiology Impressions Chest CT 07/14/18 14:06 IMPRESSION: Stable position of chest tube in the left pleural space. No visible pneumothorax. Progressive lower lobe infiltrates particularly left lower lobe. Underlying severe emphysematous change with bullous formation unchanged compared to the prior study Chest X-Ray 07/15/18 04:07 IMPRESSION: Left chest tube unchanged. No interval pneumothorax identified. Extensive COPD changes reiterated. No acute infiltrate or pulmonary vascular congestion appreciable. Review of Systems - Cardiovascular Cardiovascular: absent: As Per HPI, Acrocyanosis, Chest Pain, Chest Pain at Rest, Chest Pain with Activity, Claudication, Diaphoresis, Dyspnea, Dyspnea on Exertion, Edema, Irregular Heart Rhythm, Pain Radiating to Arm/Neck/Jaw, Leg Edema, Leg Ulcers, Lightheadedness, Orthopnea, Palpitations, Paroxysmal Nocturnal Dyspnea, Pedal Edema, Radiating Pain, Rapid Heart Rate, Slow Heart Rate, Syncope, Other, UNREMARKABLE - Respiratory Respiratory: absent: As Per HPI, Cough, Dyspnea, Hemoptysis, Dyspnea on Exertion, Wheezing, Snoring, Stridor, Pain on Inspiration, Chest Congestion, Excessive Mucous Production, Change in Mucous Color, Pain with Coughing, Other, UNREMARKABLE Critical Care Progress Note - Nutrition Nutrition: Nutrition Category Date Time Status Regular Diet [DIET] Diets 07/12/18 Lunch Active Assessment/Plan (1) Substance abuse Current Visit: Yes Status: Acute Priority: High (2) Moderate COPD (chronic obstructive pulmonary disease) Current Visit: Yes Status: Acute Priority: High (3) Tension pneumothorax, spontaneous Current Visit: Yes Status: Acute Priority: High (4) Alcohol abuse Current Visit: No Status: Acute Priority: High
[2018-07-15] MEDS: TOBRAMYCIN SULFATE IVPB SCH (17:44)
[2018-07-15] MEDS: SODIUM CHLORIDE 0.9% IVPB SCH (17:44)
--- NOTE | 2018-07-15 22:20 | CP.PCM.PN ---
Subjective - Date & Time of Evaluation Date of Evaluation: 07/15/18 Time of Evaluation: 11:35 - Subjective Subjective: Patient has been stable Has minimal SOB Still on chest tube Noted increase in WBC. On Cefepime and zithromax Objective - Vital Signs/Intake and Output Vital Signs (last 24 hours): Temp Pulse Resp BP Pulse Ox 98.6 F 76 20 118/85 90 L 07/15/18 18:12 07/15/18 18:12 07/15/18 18:12 07/15/18 18:12 07/15/18 18:12 Intake and Output: 07/15/18 07/16/18 18:59 06:59 Intake Total 354 Output Total 500 Balance -146 - Medications Medications: Current Medications Acetaminophen (Tylenol 325mg Tab) 650 mg PO Q4 PRN PRN Reason: Pain, Mild (1-3) Last Admin: 07/14/18 08:33 Dose: 650 mg Acetaminophen (Tylenol 325mg Tab) 650 mg PO Q6 PRN PRN Reason: Fever >100.4 F Last Admin: 07/13/18 13:02 Dose: 650 mg Albuterol/Ipratropium (Duoneb 3 Mg/0.5 Mg (3 Ml) Ud) 3 ml INH RQID [facility] Last Admin: 07/15/18 19:18 Dose: 3 ml Amlodipine Besylate (Norvasc) 5 mg PO DAILY [facility] Last Admin: 07/15/18 09:38 Dose: 5 mg Chlordiazepoxide (Librium) 25 mg PO Q8 [facility] Last Admin: 07/15/18 17:51 Dose: 25 mg Folic Acid (Folic Acid) 1 mg PO DAILY [facility] Last Admin: 07/15/18 09:39 Dose: 1 mg Guaifenesin (Robitussin) 100 mg PO Q6 PRN PRN Reason: Cough Last Admin: 07/15/18 21:19 Dose: 100 mg Azithromycin 500 mg/ Sodium (Chloride) 250 mls @ 250 mls/hr IVPB DAILY [facility]; Protocol Last Admin: 07/15/18 09:52 Dose: 250 mls/hr Cefepime HCl 2 gm/ Sodium (Chloride) 100 mls @ 100 mls/hr IVPB Q12 [facility]; Protocol Last Admin: 07/15/18 21:18 Dose: 100 mls/hr Tobramycin Sulfate 365 mg/ (Sodium Chloride) 259.125 mls @ 259.125 mls/hr IVPB DAILY@1400 [facility] Last Admin: 07/15/18 17:44 Dose: 259.125 mls/hr Morphine Sulfate (Morphine) 2 mg IVP Q4 PRN PRN Reason: Pain, moderate (4-7) Last Admin: 07/15/18 09:36 Dose: 2 mg Nicotine (Nicoderm Cq) 1 patch TD DAILY [facility] Last Admin: 07/15/18 09:41 Dose: 1 patch Thiamine HCl (Vitamin B1 Tab) 100 mg PO DAILY [facility] Last Admin: 07/15/18 09:38 Dose: 100 mg - Labs Labs: 07/15/18 06:50 07/15/18 06:50 PT 11.8 Seconds (9.8-13.1) 07/12/18 07:45 INR 1.0 07/12/18 07:45 APTT 32.2 Seconds (25.6-37.1) 07/12/18 07:45 - Head Exam Head Exam: NORMAL INSPECTION - Eye Exam Eye Exam: Normal appearance - ENT Exam ENT Exam: Mucous Membranes Moist - Respiratory Exam Respiratory Exam: Decreased Breath Sounds - Cardiovascular Exam Cardiovascular Exam: REGULAR RHYTHM - GI/Abdominal Exam GI & Abdominal Exam: Normal Bowel Sounds Assessment and Plan (1) Moderate COPD (chronic obstructive pulmonary disease) Status: Acute (2) Pneumonia Status: Acute (3) Substance abuse Status: Acute (4) Tension pneumothorax, spontaneous Status: Acute (5) Alcohol abuse Status: Acute - Assessment and Plan (Free Text) Plan: Cont meds Cont tx Cont neb tx cont chest tube cont iv antibiotics
[2018-07-16] MEDS: Morphine 4 MG/ML VIAL IVP PRN ×3 (01:52→23:45)
[2018-07-16] MEDS: Albuterol-Ipratrop 3 mg / 0.5 (3 ml) UD INH SCH ×4 (07:25→19:58)
[2018-07-16 09:06] LABS: HEMOGLOBIN 15.4 g/dL (12.0-18.0); MEAN CELL VOLUME 95.6 fl (80.0-94.0); MEAN CORPUSCULAR HEMOGLOBIN 32.2 pg (27.0-31.0); MEAN CORPUSCULAR HGB CONC 33.7 g/dL (33.0-37.0); RBC 4.78 Mil/uL (4.40-5.90); RED CELL DISTRIBUTION WIDTH 12.8 % (11.5-14.5); WHITE BLOOD COUNT 9.8 K/uL (4.8-10.8)
[2018-07-16] MEDS: Enoxaparin 40 mg Syringe SC SCH (09:59)
[2018-07-16] MEDS: Azithromycin 500 MG in Sodium Chloride 0.9% 250 ML IVPB SCH (10:02)
[2018-07-16] MEDS: Cefepime 2 GM in Sodium Chloride 0.9% 100 ML IVPB SCH ×2 (10:02→22:05)
--- NOTE | 2018-07-16 11:00 | CP.PCM.PN ---
Subjective - Date & Time of Evaluation Date of Evaluation: 07/16/18 Time of Evaluation: 11:39 - Subjective Subjective: CT Sx: Dr Ramsey 58 y/o male patient seen and evaluated in med surg. Patient resting comfortably, and states pain has improved since yesterday. Patient denies any shortness of breath. CT in place, on suction, negative air leak noted Objective - Vital Signs/Intake and Output Vital Signs (last 24 hours): Temp Pulse Resp BP Pulse Ox 98.2 F 88 20 132/79 100 07/16/18 08:39 07/16/18 08:39 07/16/18 08:39 07/16/18 08:39 07/16/18 08:39 - Medications Medications: Current Medications Acetaminophen (Tylenol 325mg Tab) 650 mg PO Q4 PRN PRN Reason: Pain, Mild (1-3) Last Admin: 07/14/18 08:33 Dose: 650 mg Acetaminophen (Tylenol 325mg Tab) 650 mg PO Q6 PRN PRN Reason: Fever >100.4 F Last Admin: 07/13/18 13:02 Dose: 650 mg Albuterol/Ipratropium (Duoneb 3 Mg/0.5 Mg (3 Ml) Ud) 3 ml INH RQID [facility] Last Admin: 07/16/18 07:25 Dose: 3 ml Amlodipine Besylate (Norvasc) 5 mg PO DAILY [facility] Last Admin: 07/16/18 10:03 Dose: 5 mg Chlordiazepoxide (Librium) 25 mg PO Q12 [facility] Enoxaparin Sodium (Lovenox) 40 mg SC DAILY [facility]; Protocol Last Admin: 07/16/18 09:59 Dose: 40 mg Folic Acid (Folic Acid) 1 mg PO DAILY [facility] Last Admin: 07/16/18 09:59 Dose: 1 mg Guaifenesin (Robitussin) 100 mg PO Q6 PRN PRN Reason: Cough Last Admin: 07/15/18 21:19 Dose: 100 mg Azithromycin 500 mg/ Sodium (Chloride) 250 mls @ 250 mls/hr IVPB DAILY [facility]; Protocol Last Admin: 07/16/18 10:02 Dose: 250 mls/hr Cefepime HCl 2 gm/ Sodium (Chloride) 100 mls @ 100 mls/hr IVPB Q12 [facility]; Protocol Last Admin: 07/16/18 10:02 Dose: 100 mls/hr Tobramycin Sulfate 365 mg/ (Sodium Chloride) 259.125 mls @ 259.125 mls/hr IVPB DAILY@1400 [facility] Last Admin: 07/15/18 17:44 Dose: 259.125 mls/hr Morphine Sulfate (Morphine) 2 mg IVP Q4 PRN PRN Reason: Pain, moderate (4-7) Last Admin: 07/16/18 01:52 Dose: 2 mg Nicotine (Nicoderm Cq) 1 patch TD DAILY [facility] Last Admin: 07/16/18 10:03 Dose: 1 patch Thiamine HCl (Vitamin B1 Tab) 100 mg PO DAILY [facility] Last Admin: 07/16/18 10:02 Dose: 100 mg - Labs Labs: 07/16/18 08:55 07/15/18 06:50 PT 11.8 Seconds (9.8-13.1) 07/12/18 07:45 INR 1.0 07/12/18 07:45 APTT 32.2 Seconds (25.6-37.1) 07/12/18 07:45 - Constitutional Appears: Well, Non-toxic, No Acute Distress - Head Exam Head Exam: ATRAUMATIC, NORMOCEPHALIC - Respiratory Exam Respiratory Exam: absent: Accessory Muscle Use, Respiratory Distress Additional comments: chest tube on water seal - Cardiovascular Exam Cardiovascular Exam: REGULAR RHYTHM - GI/Abdominal Exam GI & Abdominal Exam: Soft, Normal Bowel Sounds. absent: Firm, Guarding, Rigid - Neurological Exam Neurological Exam: Alert, Awake - Psychiatric Exam Psychiatric exam: Normal Affect, Normal Mood - Skin Skin Exam: Normal Color Assessment and Plan - Assessment and Plan (Free Text) Assessment: 58 y/o male with extensive bullous disease, s/p L thoracostomy tube for spontaneous pneumo Plan: continue Chest tube on water seal due to small air leak follow up CXR from today- no pneumothorax continue incentive spirometer will d/w attending Dr. Roxy Carrasco, PGY1
--- NOTE | 2018-07-16 11:24 | RAD ---
Date of service: 07/16/2018 HISTORY: series COMPARISON: Portable chest 07/15/2018. TECHNIQUE: Chest PA and lateral FINDINGS: LUNGS: Gross COPD changes reiterated with left chest tube unchanged in position. No pneumothorax bilaterally once again. Pulmonary fibrotic changes diffusely evident once again. PLEURA: No significant pleural effusion identified. No pneumothorax apparent. CARDIOVASCULAR: No aortic atherosclerotic calcification present. Normal cardiac size. No pulmonary vascular congestion. OSSEOUS STRUCTURES: No significant abnormalities. VISUALIZED UPPER ABDOMEN: Normal. OTHER FINDINGS: None. IMPRESSION: Stable COPD and pulmonary fibrosis with left chest tube unchanged. No pneumothorax bilaterally.
[2018-07-16] MEDS: guaiFENesin 100 mg/5 ml Syrup UD PO PRN (14:49)
[2018-07-16] MEDS: SODIUM CHLORIDE 0.9% IVPB SCH (17:27)
[2018-07-16] MEDS: TOBRAMYCIN SULFATE IVPB SCH (17:27)
--- NOTE | 2018-07-17 06:25 | CARD ---
APPROVED REPORT Date of service: 07/12/2018 EKG Measurement Heart [id number] <Conclusion> Sinus tachycardia Possible Left atrial enlargement Borderline ECG
[2018-07-17] MEDS: Albuterol-Ipratrop 3 mg / 0.5 (3 ml) UD INH SCH ×4 (07:43→19:17)
[2018-07-17] MEDS: Morphine 4 MG/ML VIAL IVP PRN ×2 (09:31→22:20)
[2018-07-17] MEDS: Enoxaparin 40 mg Syringe SC SCH (09:31)
[2018-07-17] MEDS: Cefepime 2 GM in Sodium Chloride 0.9% 100 ML IVPB SCH ×2 (09:39→21:27)
--- NOTE | 2018-07-17 11:47 | RAD ---
Date of service: 07/17/2018 HISTORY: pneumothorax, s/p chest tube, small air leak COMPARISON: 07/16/2018 TECHNIQUE: Chest PA and lateral FINDINGS: LUNGS: Bullous emphysema. Large bilateral upper lobe bullae. No definite pneumothorax. No change in appearance from previous examination. Large bore left chest tube unchanged in position. Probable small left pleural effusion. No right pleural effusion. PLEURA: As above CARDIOVASCULAR: There is atherosclerotic calcification of the aortic arch. Normal cardiac size. No pulmonary vascular congestion. OSSEOUS STRUCTURES: No significant abnormalities. VISUALIZED UPPER ABDOMEN: Normal. OTHER FINDINGS: None. IMPRESSION: Bullous emphysema. No definite pneumothorax. Left chest tube unchanged. Probable small left pleural effusion.
[2018-07-17] MEDS: Azithromycin 500 MG in Sodium Chloride 0.9% 250 ML IVPB SCH (12:37)
[2018-07-17] MEDS: SODIUM CHLORIDE 0.9% IVPB SCH (15:43)
[2018-07-17] MEDS: TOBRAMYCIN SULFATE IVPB SCH (15:43)
--- NOTE | 2018-07-17 16:55 | RAD ---
Date of service: 07/17/2018 PROCEDURE: CHEST RADIOGRAPH, 1 VIEW HISTORY: s/p chest tube COMPARISON: 07/17/2018 FINDINGS: LUNGS: Again seen are severe bullous changes in both medial upper lobes. There are chronic changes in both lungs. The lungs are hyperinflated with peribronchial thickening and there is linear scarring in the left mid lung. PLEURA: Status post removal of left chest tube. No pneumothorax or pleural effusion. CARDIOVASCULAR: The heart is normal in size. No aortic atherosclerotic calcifications present. OSSEOUS STRUCTURES: Within normal limits for the patient's age. VISUALIZED UPPER ABDOMEN: Normal. OTHER FINDINGS: None. IMPRESSION: Status post removal of left chest tube, no pneumothorax. No significant interval change in severe bullous changes in both upper lobes.
--- NOTE | 2018-07-17 18:20 | CP.PCM.PN ---
Subjective - Date & Time of Evaluation Date of Evaluation: 07/17/18 Time of Evaluation: 11:00 - Subjective Subjective: patient seen and examined at bedside. Interim events noted No complaints offered at this time chest tube still in place, CXR completed this AM denies cp/sob/fever/chills. available diagnostic data reviewed Review of Systems All systems: reviewed and no additional remarkable complaints except mentioned above Objective Vital Signs Stable - Constitutional Appears: Non-toxic, No Acute Distress Head Exam: NORMAL INSPECTION Eye Exam: Normal appearance Respiratory Exam: NORMAL BREATHING PATTERN Cardiovascular Exam: +S1, +S2 GI & Abdominal Exam: Soft Neurological Exam: Alert, Awake Psychiatric exam: Normal Affect, Normal Mood Skin Exam: Normal Color, Warm Assessment and Plan monitor vitals monitor labs Cont meds Cont tx consultants appreciated input rest of plan as ordered Objective - Vital Signs/Intake and Output Vital Signs (last 24 hours): Temp Pulse Resp BP Pulse Ox 97.3 F L 75 20 105/68 92 L 07/17/18 16:43 07/17/18 16:43 07/17/18 16:43 07/17/18 16:43 07/17/18 16:43 - Medications Medications: Current Medications Acetaminophen (Tylenol 325mg Tab) 650 mg PO Q4 PRN PRN Reason: Pain, Mild (1-3) Last Admin: 07/14/18 08:33 Dose: 650 mg Acetaminophen (Tylenol 325mg Tab) 650 mg PO Q6 PRN PRN Reason: Fever >100.4 F Last Admin: 07/13/18 13:02 Dose: 650 mg Albuterol/Ipratropium (Duoneb 3 Mg/0.5 Mg (3 Ml) Ud) 3 ml INH RQID [facility] Last Admin: 07/17/18 15:12 Dose: 3 ml Amlodipine Besylate (Norvasc) 5 mg PO DAILY [facility] Last Admin: 07/17/18 09:47 Dose: 5 mg Chlordiazepoxide (Librium) 25 mg PO Q12 [facility] Last Admin: 07/17/18 09:31 Dose: 25 mg Enoxaparin Sodium (Lovenox) 40 mg SC DAILY [facility]; Protocol Last Admin: 07/17/18 09:31 Dose: 40 mg Folic Acid (Folic Acid) 1 mg PO DAILY [facility] Last Admin: 07/17/18 09:30 Dose: 1 mg Guaifenesin (Robitussin) 100 mg PO Q6 PRN PRN Reason: Cough Last Admin: 07/16/18 14:49 Dose: 100 mg Azithromycin 500 mg/ Sodium (Chloride) 250 mls @ 250 mls/hr IVPB DAILY [facility]; Protocol Last Admin: 07/17/18 12:37 Dose: 250 mls/hr Cefepime HCl 2 gm/ Sodium (Chloride) 100 mls @ 100 mls/hr IVPB Q12 [facility]; Protocol Last Admin: 07/17/18 09:39 Dose: 100 mls/hr Tobramycin Sulfate 365 mg/ (Sodium Chloride) 259.125 mls @ 259.125 mls/hr IVPB DAILY@1400 [facility] Last Admin: 07/17/18 15:43 Dose: 259.125 mls/hr Morphine Sulfate (Morphine) 2 mg IVP Q4 PRN PRN Reason: Pain, moderate (4-7) Last Admin: 07/17/18 09:31 Dose: 2 mg Nicotine (Nicoderm Cq) 1 patch TD DAILY [facility] Last Admin: 07/17/18 09:48 Dose: 1 patch Thiamine HCl (Vitamin B1 Tab) 100 mg PO DAILY [facility] Last Admin: 07/17/18 09:49 Dose: 100 mg - Labs Labs: 07/16/18 08:55 07/15/18 06:50 PT 11.8 Seconds (9.8-13.1) 07/12/18 07:45 INR 1.0 07/12/18 07:45 APTT 32.2 Seconds (25.6-37.1) 07/12/18 07:45 Assessment and Plan (1) Tension pneumothorax, spontaneous Status: Acute (2) Pneumonia Status: Acute
--- NOTE | 2018-07-18 01:52 | CP.PCM.PN ---
Subjective - Date & Time of Evaluation Date of Evaluation: 07/16/18 Time of Evaluation: 08:00 - Subjective Subjective: Pt seen and assessed at bedside. Currently has a left chest tube maintained to gravity with straw colored fluid draining. Pt denies SOB, or discomfort at chest tube insertion site. The pt is currently receiving antibiotics; WBC count has been elevated. Review of Systems - Review of Systems All systems: reviewed and no additional remarkable complaints except (cough) Objective - Vital Signs/Intake and Output Vital Signs (last 24 hours): Temp Pulse Resp BP Pulse Ox 97.3 F L 66 20 111/70 95 07/17/18 23:45 07/17/18 23:45 07/17/18 23:45 07/17/18 23:45 07/17/18 23:45 - Medications Medications: Current Medications Acetaminophen (Tylenol 325mg Tab) 650 mg PO Q4 PRN PRN Reason: Pain, Mild (1-3) Last Admin: 07/14/18 08:33 Dose: 650 mg Acetaminophen (Tylenol 325mg Tab) 650 mg PO Q6 PRN PRN Reason: Fever >100.4 F Last Admin: 07/13/18 13:02 Dose: 650 mg Albuterol/Ipratropium (Duoneb 3 Mg/0.5 Mg (3 Ml) Ud) 3 ml INH RQID [facility] Last Admin: 07/17/18 19:17 Dose: 3 ml Amlodipine Besylate (Norvasc) 5 mg PO DAILY [facility] Last Admin: 07/17/18 09:47 Dose: 5 mg Chlordiazepoxide (Librium) 25 mg PO Q12 [facility] Last Admin: 07/17/18 21:31 Dose: 25 mg Enoxaparin Sodium (Lovenox) 40 mg SC DAILY [facility]; Protocol Last Admin: 07/17/18 09:31 Dose: 40 mg Folic Acid (Folic Acid) 1 mg PO DAILY [facility] Last Admin: 07/17/18 09:30 Dose: 1 mg Guaifenesin (Robitussin) 100 mg PO Q6 PRN PRN Reason: Cough Last Admin: 07/16/18 14:49 Dose: 100 mg Azithromycin 500 mg/ Sodium (Chloride) 250 mls @ 250 mls/hr IVPB DAILY [facility]; Protocol Last Admin: 07/17/18 12:37 Dose: 250 mls/hr Cefepime HCl 2 gm/ Sodium (Chloride) 100 mls @ 100 mls/hr IVPB Q12 [facility]; Protocol Last Admin: 07/17/18 21:27 Dose: 100 mls/hr Tobramycin Sulfate 365 mg/ (Sodium Chloride) 259.125 mls @ 259.125 mls/hr IVPB DAILY@1400 [facility] Last Admin: 07/17/18 15:43 Dose: 259.125 mls/hr Morphine Sulfate (Morphine) 2 mg IVP Q4 PRN PRN Reason: Pain, moderate (4-7) Last Admin: 07/17/18 22:20 Dose: 2 mg Nicotine (Nicoderm Cq) 1 patch TD DAILY [facility] Last Admin: 07/17/18 09:48 Dose: 1 patch Thiamine HCl (Vitamin B1 Tab) 100 mg PO DAILY [facility] Last Admin: 07/17/18 09:49 Dose: 100 mg - Labs Labs: 07/16/18 08:55 07/15/18 06:50 PT 11.8 Seconds (9.8-13.1) 07/12/18 07:45 INR 1.0 07/12/18 07:45 APTT 32.2 Seconds (25.6-37.1) 07/12/18 07:45 - Constitutional Appears: Older Than Stated Age - Head Exam Head Exam: ATRAUMATIC, NORMAL INSPECTION, NORMOCEPHALIC - Eye Exam Eye Exam: EOMI, Normal appearance, PERRL Pupil Exam: NORMAL ACCOMODATION, PERRL - ENT Exam ENT Exam: Mucous Membranes Moist - Neck Exam Neck Exam: Full ROM, Normal Inspection - Respiratory Exam Respiratory Exam: Decreased Breath Sounds - Cardiovascular Exam Cardiovascular Exam: REGULAR RHYTHM, +S1, +S2 - GI/Abdominal Exam GI & Abdominal Exam: Soft, Normal Bowel Sounds - Extremities Exam Extremities Exam: Full ROM, Normal Capillary Refill, Normal Inspection - Back Exam Back Exam: NORMAL INSPECTION - Neurological Exam Neurological Exam: Alert, Awake, CN II-XII Intact, Oriented x3 - Psychiatric Exam Psychiatric exam: Normal Affect, Normal Mood - Skin Skin Exam: Dry, Normal Color, Warm Additional comments: scabies lesions observed to BLE; healing at this time. Assessment and Plan (1) Tension pneumothorax, spontaneous Assessment & Plan: 1.) Spontaneous pneumothorax -medically stable at this time. -left chest tube draining to gravity; scant straw colored fluid observed. -On cefepime and azithromycin antibiotics. Monitor WBC. -surgical team is following. -serial CXR's to monitor inflation of the lung/assess for pneumothorax. -incentive spirometry advised. -consults input appreciated. -continue current tx. Status: Acute (2) Alcohol abuse Status: Acute
[2018-07-18] MEDS: Albuterol-Ipratrop 3 mg / 0.5 (3 ml) UD INH SCH ×4 (07:18→19:48)
--- NOTE | 2018-07-18 07:41 | CP.PCM.PN ---
Subjective - Date & Time of Evaluation Date of Evaluation: 07/18/18 Time of Evaluation: 07:36 - Subjective Subjective: CT Surgery Note for Dr. Alvarado Pt was seen and examined this AM at bedside. No acute events reported overnight. Patients as baseline reports SOB which he still reports however he reports he "feels better" since the tube was removed. Objective - Vital Signs/Intake and Output Vital Signs (last 24 hours): Temp Pulse Resp BP Pulse Ox 97.3 F L 66 20 111/70 95 07/17/18 23:45 07/17/18 23:45 07/17/18 23:45 07/17/18 23:45 07/17/18 23:45 - Medications Medications: Current Medications Acetaminophen (Tylenol 325mg Tab) 650 mg PO Q4 PRN PRN Reason: Pain, Mild (1-3) Last Admin: 07/14/18 08:33 Dose: 650 mg Acetaminophen (Tylenol 325mg Tab) 650 mg PO Q6 PRN PRN Reason: Fever >100.4 F Last Admin: 07/13/18 13:02 Dose: 650 mg Albuterol/Ipratropium (Duoneb 3 Mg/0.5 Mg (3 Ml) Ud) 3 ml INH RQID [facility] Last Admin: 07/18/18 07:18 Dose: 3 ml Amlodipine Besylate (Norvasc) 5 mg PO DAILY [facility] Last Admin: 07/17/18 09:47 Dose: 5 mg Chlordiazepoxide (Librium) 25 mg PO Q12 [facility] Last Admin: 07/17/18 21:31 Dose: 25 mg Enoxaparin Sodium (Lovenox) 40 mg SC DAILY [facility]; Protocol Last Admin: 07/17/18 09:31 Dose: 40 mg Folic Acid (Folic Acid) 1 mg PO DAILY [facility] Last Admin: 07/17/18 09:30 Dose: 1 mg Guaifenesin (Robitussin) 100 mg PO Q6 PRN PRN Reason: Cough Last Admin: 07/16/18 14:49 Dose: 100 mg Azithromycin 500 mg/ Sodium (Chloride) 250 mls @ 250 mls/hr IVPB DAILY [facility]; Protocol Last Admin: 07/17/18 12:37 Dose: 250 mls/hr Cefepime HCl 2 gm/ Sodium (Chloride) 100 mls @ 100 mls/hr IVPB Q12 [facility]; Protocol Last Admin: 07/17/18 21:27 Dose: 100 mls/hr Tobramycin Sulfate 365 mg/ (Sodium Chloride) 259.125 mls @ 259.125 mls/hr IVPB DAILY@1400 [facility] Last Admin: 07/17/18 15:43 Dose: 259.125 mls/hr Morphine Sulfate (Morphine) 2 mg IVP Q4 PRN PRN Reason: Pain, moderate (4-7) Last Admin: 07/17/18 22:20 Dose: 2 mg Nicotine (Nicoderm Cq) 1 patch TD DAILY [facility] Last Admin: 07/17/18 09:48 Dose: 1 patch Thiamine HCl (Vitamin B1 Tab) 100 mg PO DAILY [facility] Last Admin: 07/17/18 09:49 Dose: 100 mg - Labs Labs: 07/16/18 08:55 07/15/18 06:50 PT 11.8 Seconds (9.8-13.1) 07/12/18 07:45 INR 1.0 07/12/18 07:45 APTT 32.2 Seconds (25.6-37.1) 07/12/18 07:45 - Constitutional Appears: Non-toxic, No Acute Distress - Head Exam Head Exam: ATRAUMATIC, NORMOCEPHALIC - Eye Exam Eye Exam: EOMI - ENT Exam ENT Exam: Mucous Membranes Moist - Respiratory Exam Respiratory Exam: NORMAL BREATHING PATTERN - Cardiovascular Exam Cardiovascular Exam: REGULAR RHYTHM - GI/Abdominal Exam GI & Abdominal Exam: Soft. absent: Firm, Guarding, Rigid, Tenderness - Neurological Exam Neurological Exam: Alert, Awake - Psychiatric Exam Psychiatric exam: Normal Affect, Normal Mood - Skin Skin Exam: Dry, Intact Assessment and Plan - Assessment and Plan (Free Text) Assessment: 58M with diffuse bullous emphasematous lungs Chest tube removed post pull CXR shows lung expanded Pt will need sutures removed prior to d/c No more surgical managment at this time Call to schedule followup with Dr. Castellano Further recs per Dr. Jenny Salas PGY3
[2018-07-18] MEDS: Cefepime 2 GM in Sodium Chloride 0.9% 100 ML IVPB SCH ×2 (09:01→21:30)
[2018-07-18] MEDS: Enoxaparin 40 mg Syringe SC SCH (09:02)
[2018-07-18] MEDS: Azithromycin 500 MG in Sodium Chloride 0.9% 250 ML IVPB SCH (11:56)
[2018-07-18] MEDS: Morphine 4 MG/ML VIAL IVP PRN (11:57)
[2018-07-18 12:06] LABS: HEPATITIS B SURFACE AG Negative (NEGATIVE)
[2018-07-18 12:11] LABS: HEPATITIS A IGM NEGATIVE (NEGATIVE); HEPATITIS B CORE AB NEGATIVE (NEGATIVE)
--- NOTE | 2018-07-18 13:43 | CP.PCM.CON ---
History of Present Illness - History of Present Illness History of Present Illness: 58M presents with shortness of breath that began earlier today. Patient states he has never had something like this before. He admits to symptoms of URI including cough for the last week. He admits to chest pain, denies abdominal pain, denies nausea or vomiting. Admits to use of cocaine 3 days ago. PMH: Scabies PSH: Left inguinal hernia repair, vein stripping Social: admits to tobacco use, cocaine use and alcohol use Allergies: NKDA Review of Systems - Review of Systems All systems: reviewed and no additional remarkable complaints except - Constitutional Constitutional: absent: As Per HPI, Anorexia, Chills, Daytime Sleepiness, Excessive Sweating, Fatigue, Fever, Frequent Falls, Headache, Increased Appetite, Lethargy, Malaise, Night Sweats, Snoring, Sleep Apnea, Weight Gain, Weight Loss, Weakness, Other - EENT Eyes: absent: As Per HPI, Blind Spots, Blurred Vision, Change in Vision, Decreased Night Vision, Diplopia, Discharge, Dry Eye, Exophthalmos, Floaters, Irritation, Itchy Eyes, Loss of Peripheral Vision, Pain, Photophobia, Requires Corrective Lenses, Sees Flashes, Spots in Vision, Tunnel Vision, Other Visual Disturbances, Loss of Vision, Other Ears: absent: As Per HPI, Decreased Hearing, Ear Discharge, Ear Pain, Tinnitus, Abnormal Hearing, Disequilibrium, Dizziness, Other Nose/Mouth/Throat: absent: As Per HPI, Epistaxis, Nasal Congestion, Nasal Discharge, Nasal Obstruction, Nasal Trauma, Nose Pain, Post Nasal Drip, Sinus Pain, Sinus Pressure, Bleeding Gums, Change in Voice, Dental Pain, Dry Mouth, Dysphagia, Halitosis, Hoarsness, Lip Swelling, Mouth Lesions, Mouth Pain, Odynophagia, Sore Throat, Throat Swelling, Tongue Swelling, Facial Pain, Neck Pain, Neck Mass, Other - Cardiovascular Cardiovascular: As Per HPI - Respiratory Respiratory: As Per HPI, Cough, Dyspnea - Gastrointestinal Gastrointestinal: absent: As Per HPI, Abdominal Pain, Belching, Bloating, Change in Bowel Habits, Change in Stool Character, Coffee Ground Emesis, Constipation, Cramping, Diarrhea, Dyspepsia, Dysphagia, Early Satiety, Excessive Flatus, Fecal Incontinence, Heartburn, Hematemesis, Hematochezia, Loose Stools, Melena, Nausea, Odynophagia, Temesmus, Vomiting, Other - Genitourinary Genitourinary: absent: As Per HPI, Change in Urinary Stream, Difficulty Urinating, Dysuria, Flank Pain, Hematuria, Pyuria, Nocturia, Urinary Incontinence, Urinary Frequency, Urinary Hesitance, Urinary Urgency, Voiding Freq/Small Amts, Freq UTI, Hx Renal/Bladder Calculi, Hx /Renal Surgery, Bladder Distension, Other - Musculoskeletal Musculoskeletal: As Per HPI - Integumentary Integumentary: As Per HPI - Neurological Neurological: absent: As Per HPI, Abnormal Gait, Abnormal Hearing, Abnormal Movements, Abnormal Speech, Behavioral Changes, Burning Sensations, Confusion, Convulsions, Disequilibrium, Dizziness, Numbness, Focal Weakness, Frequent Falls, Headaches, Lack of Coordination, Loss of Vision, Memory Loss, Paresthesias, Radicular Pain, Restless Legs, Sensory Deficit, Syncope, Tingling, Tremor, Vertigo, Weakness, Other Visual Disturbances, Other - Psychiatric Psychiatric: absent: As Per HPI, Abnormal Sleep Pattern, Anhedonia, Anxiety, Auditory Hallucinations, Behavioral Changes, Change in Appetite, Change in Libi do, Confusion, Depression, Difficulty Concentrating, Hallucinations, Homicidal Ideation, Hopelessness, Irritability, Memory Loss, Mood Swings, Panic Attacks, Paranoia, Suicidal Ideation, Visual Hallucinations, Tactile Hallucinations, Other - Endocrine Endocrine: absent: As Per HPI, Change in Body Appearance, Change in Libido, Cold Intolorance, Deepening of Voice, Excessive Sweating, Fatigue, Flushing, Heat Intolorance, Increase in Ring/Shoe/Hat Size, Palpitations, Polydipsia, Polyphagia, Polyuria, Other - Hematologic/Lymphatic Hematologic: absent: As Per HPI, Easy Bleeding, Easy Bruising, Lymphadenopathy, Other Past Patient History - Past Medical History & Family History Past Medical History?: Yes - Past Social History Smoking Status: Light Smoker < 10 Cigarettes Daily - CARDIAC Hx Cardiac Disorders: Yes Hx Hypertension: Yes - PULMONARY Hx Respiratory Disorders: No - NEUROLOGICAL Hx Neurological Disorder: No - HEENT Hx HEENT Problems: No - RENAL Hx Chronic Kidney Disease: No - ENDOCRINE/METABOLIC Hx Endocrine Disorders: No - HEMATOLOGICAL/ONCOLOGICAL Hx Blood Disorders: No - INTEGUMENTARY Hx Dermatological Problems: No - MUSCULOSKELETAL/RHEUMATOLOGICAL Hx Falls: Yes Other/Comment: Left shoulder and knee contusion - GASTROINTESTINAL Hx Gastrointestinal Disorders: No - GENITOURINARY/GYNECOLOGICAL Hx Genitourinary Disorders: No - PSYCHIATRIC Hx Anxiety: Yes Hx Depression: Yes Hx Substance Use: Yes (crack) - SURGICAL HISTORY Hx Surgeries: Yes Hx Herniorrhaphy: Yes (left groin hernia SX) Other/Comment: VERICOSE VEIN S/L LEFT LEG 1989 - ANESTHESIA Hx Anesthesia: Yes Hx Anesthesia Reactions: No Hx Malignant Hyperthermia: No Has any member of the family had a problem w/ anesthesia?: No Meds Allergies/Adverse Reactions: Allergies Allergy/AdvReac Type Severity Reaction Status Date / Time No Known Allergies Allergy Verified 07/12/18 05:38 - Medications Medications: Current Medications Acetaminophen (Tylenol 325mg Tab) 650 mg PO Q4 PRN PRN Reason: Pain, Mild (1-3) Last Admin: 07/14/18 08:33 Dose: 650 mg Acetaminophen (Tylenol 325mg Tab) 650 mg PO Q6 PRN PRN Reason: Fever >100.4 F Last Admin: 07/13/18 13:02 Dose: 650 mg Albuterol/Ipratropium (Duoneb 3 Mg/0.5 Mg (3 Ml) Ud) 3 ml INH RQID [facility] Last Admin: 07/18/18 11:05 Dose: 3 ml Amlodipine Besylate (Norvasc) 5 mg PO DAILY [facility] Last Admin: 07/18/18 09:02 Dose: 5 mg Chlordiazepoxide (Librium) 25 mg PO DAILY [facility] Enoxaparin Sodium (Lovenox) 40 mg SC DAILY [facility]; Protocol Last Admin: 07/18/18 09:02 Dose: 40 mg Folic Acid (Folic Acid) 1 mg PO DAILY [facility] Last Admin: 07/18/18 09:02 Dose: 1 mg Guaifenesin (Robitussin) 100 mg PO Q6 PRN PRN Reason: Cough Last Admin: 07/16/18 14:49 Dose: 100 mg Azithromycin 500 mg/ Sodium (Chloride) 250 mls @ 250 mls/hr IVPB DAILY [facility]; Protocol Last Admin: 07/18/18 11:56 Dose: 250 mls/hr Cefepime HCl 2 gm/ Sodium (Chloride) 100 mls @ 100 mls/hr IVPB Q12 [facility]; Protocol Last Admin: 07/18/18 09:01 Dose: 100 mls/hr Tobramycin Sulfate 365 mg/ (Sodium Chloride) 259.125 mls @ 259.125 mls/hr IVPB DAILY@1400 [facility] Last Admin: 07/17/18 15:43 Dose: 259.125 mls/hr Morphine Sulfate (Morphine) 2 mg IVP Q4 PRN PRN Reason: Pain, moderate (4-7) Last Admin: 07/18/18 11:57 Dose: 2 mg Nicotine (Nicoderm Cq) 1 patch TD DAILY [facility] Last Admin: 07/18/18 09:02 Dose: 1 patch Thiamine HCl (Vitamin B1 Tab) 100 mg PO DAILY [facility] Last Admin: 07/18/18 09:03 Dose: 100 mg Physical Exam - Constitutional Appears: Non-toxic, Chronically Ill - Head Exam Head Exam: NORMOCEPHALIC - Eye Exam Eye Exam: absent: Scleral icterus - ENT Exam ENT Exam: Mucous Membranes Dry - Neck Exam Neck exam: Negative for: Lymphadenopathy - Respiratory Exam Respiratory Exam: Decreased Breath Sounds - Cardiovascular Exam Cardiovascular Exam: REGULAR RHYTHM - GI/Abdominal Exam GI & Abdominal Exam: Diminished Bowel Sounds, Soft. absent: Tenderness - Rectal Exam Rectal Exam: Deferred - Exam Exam: NORMAL INSPECTION - Extremities Exam Extremities exam: Negative for: pedal edema - Back Exam Back exam: absent: CVA tenderness (L), CVA tenderness (R), paraspinal tenderness - Neurological Exam Neurological exam: Alert, CN II-XII Intact, Oriented x3, Reflexes Normal - Psychiatric Exam Psychiatric exam: Depressed - Skin Skin Exam: Dry Results - Vital Signs Recent Vital Signs: Last Vital Signs Temp 97.6 F 07/18/18 08:24 Pulse 73 07/18/18 09:02 Resp 20 07/18/18 08:24 BP 107/69 07/18/18 09:02 Pulse Ox 95 07/18/18 08:24 - Labs Result Diagrams: 07/19/18 05:30 07/19/18 05:30 Labs: Laboratory Results - last 24 hr 07/17/18 07/17/18 19:50 20:33 Hepatitis A IgM Ab Negative Hep Bs Antigen Negative Hep B Core IgM Ab Negative HIV-1 Ab Rapid Screen Non reactive Assessment & Plan (1) Cough Status: Acute (2) Moderate COPD (chronic obstructive pulmonary disease) Status: Acute Priority: High (3) Pneumonia Status: Acute (4) Scabies Status: Acute (5) Substance abuse Status: Acute Priority: High (6) Tension pneumothorax, spontaneous Status: Acute Priority: High (7) Alcohol abuse Status: Acute Priority: High - Assessment and Plan (Free Text) Assessment: await cultures cont iv antibiotics
[2018-07-18 14:13] LABS: HEPATITIS C ANTIBODY REACTIVE (NEGATIVE)
[2018-07-18] MEDS: TOBRAMYCIN SULFATE IVPB SCH (15:20)
[2018-07-18] MEDS: SODIUM CHLORIDE 0.9% IVPB SCH (15:20)
--- NOTE | 2018-07-18 22:04 | CP.PCM.CON ---
History of Present Illness - History of Present Illness History of Present Illness: 58 year old male, with tobacco, ETOH, and Crack use present with a pneumothorax which required CT insertion and eventually resolution of px. Patient was also found to have PNA. NKDA. Social: as above. Hx of Scabies. Labs and meds see below. Head Neg adeno Heart rrr ns1s2 neg m lungs distant bs, bilateral air entry no c,c,e Neuro gnf Secondary Spont. Px probably from bleb rupture, now resolved. To prevent occurrence of another Px in the future, recommend Thoracic Surgery consult for VATS stapling and pleural abrasion of involved hemithorax. COPD with Blebs: Cont LATRICE with prn and standing order. Cont Abx as per ID, Monitor WBC#, temp curve, and cultures. Counseling on smoking cessation and cessation of drug use and ETOH, with possible detox in a detox center. Signing out of case; please recall if condition changes. DVT Prophylaxis. Past Patient History - Past Medical History & Family History Past Medical History?: Yes - Past Social History Smoking Status: Light Smoker < 10 Cigarettes Daily - CARDIAC Hx Cardiac Disorders: Yes Hx Hypertension: Yes - PULMONARY Hx Respiratory Disorders: No - NEUROLOGICAL Hx Neurological Disorder: No - HEENT Hx HEENT Problems: No - RENAL Hx Chronic Kidney Disease: No - ENDOCRINE/METABOLIC Hx Endocrine Disorders: No - HEMATOLOGICAL/ONCOLOGICAL Hx Blood Disorders: No - INTEGUMENTARY Hx Dermatological Problems: No - MUSCULOSKELETAL/RHEUMATOLOGICAL Hx Falls: Yes Other/Comment: Left shoulder and knee contusion - GASTROINTESTINAL Hx Gastrointestinal Disorders: No - GENITOURINARY/GYNECOLOGICAL Hx Genitourinary Disorders: No - PSYCHIATRIC Hx Anxiety: Yes Hx Depression: Yes Hx Substance Use: Yes (crack) - SURGICAL HISTORY Hx Surgeries: Yes Hx Herniorrhaphy: Yes (left groin hernia SX) Other/Comment: VERICOSE VEIN S/L LEFT LEG 1989 - ANESTHESIA Hx Anesthesia: Yes Hx Anesthesia Reactions: No Hx Malignant Hyperthermia: No Has any member of the family had a problem w/ anesthesia?: No Meds Allergies/Adverse Reactions: Allergies Allergy/AdvReac Type Severity Reaction Status Date / Time No Known Allergies Allergy Verified 07/12/18 05:38 - Medications Medications: Current Medications Acetaminophen (Tylenol 325mg Tab) 650 mg PO Q4 PRN PRN Reason: Pain, Mild (1-3) Last Admin: 07/14/18 08:33 Dose: 650 mg Acetaminophen (Tylenol 325mg Tab) 650 mg PO Q6 PRN PRN Reason: Fever >100.4 F Last Admin: 07/13/18 13:02 Dose: 650 mg Albuterol/Ipratropium (Duoneb 3 Mg/0.5 Mg (3 Ml) Ud) 3 ml INH RQID [facility] Last Admin: 07/18/18 19:48 Dose: Not Given Amlodipine Besylate (Norvasc) 5 mg PO DAILY [facility] Last Admin: 07/18/18 09:02 Dose: 5 mg Chlordiazepoxide (Librium) 25 mg PO DAILY [facility] Enoxaparin Sodium (Lovenox) 40 mg SC DAILY [facility]; Protocol Last Admin: 07/18/18 09:02 Dose: 40 mg Folic Acid (Folic Acid) 1 mg PO DAILY [facility] Last Admin: 07/18/18 09:02 Dose: 1 mg Guaifenesin (Robitussin) 100 mg PO Q6 PRN PRN Reason: Cough Last Admin: 07/16/18 14:49 Dose: 100 mg Azithromycin 500 mg/ Sodium (Chloride) 250 mls @ 250 mls/hr IVPB DAILY [facility]; Protocol Last Admin: 07/18/18 11:56 Dose: 250 mls/hr Cefepime HCl 2 gm/ Sodium (Chloride) 100 mls @ 100 mls/hr IVPB Q12 [facility]; Protocol Last Admin: 07/18/18 09:01 Dose: 100 mls/hr Tobramycin Sulfate 365 mg/ (Sodium Chloride) 259.125 mls @ 259.125 mls/hr IVPB DAILY@1400 [facility] Last Admin: 07/18/18 15:20 Dose: 259.125 mls/hr Morphine Sulfate (Morphine) 2 mg IVP Q4 PRN PRN Reason: Pain, moderate (4-7) Last Admin: 07/18/18 11:57 Dose: 2 mg Nicotine (Nicoderm Cq) 1 patch TD DAILY [facility] Last Admin: 07/18/18 09:02 Dose: 1 patch Thiamine HCl (Vitamin B1 Tab) 100 mg PO DAILY [facility] Last Admin: 07/18/18 09:03 Dose: 100 mg Results - Vital Signs Recent Vital Signs: Last Vital Signs Temp 97.1 F L 07/18/18 16:22 Pulse 72 07/18/18 16:22 Resp 20 07/18/18 16:22 BP 158/64 H 07/18/18 16:22 Pulse Ox 96 07/18/18 16:22 - Labs Result Diagrams: 07/16/18 08:55 07/15/18 06:50 Labs: Laboratory Results - last 24 hr 07/17/18 19:50 Hepatitis A IgM Ab Negative Hep Bs Antigen Negative Hep B Core IgM Ab Negative Hepatitis C Antibody Reactive
[2018-07-19] MEDS: Morphine 4 MG/ML VIAL IVP PRN ×3 (04:00→21:07)
[2018-07-19] MEDS: Albuterol-Ipratrop 3 mg / 0.5 (3 ml) UD INH SCH ×4 (07:32→19:09)
[2018-07-19 07:41] LABS: HEMOGLOBIN 15.3 g/dL (12.0-18.0); MEAN CELL VOLUME 96.1 fl (80.0-94.0); MEAN CORPUSCULAR HEMOGLOBIN 32.2 pg (27.0-31.0); MEAN CORPUSCULAR HGB CONC 33.5 g/dL (33.0-37.0); RBC 4.76 Mil/uL (4.40-5.90); RED CELL DISTRIBUTION WIDTH 12.6 % (11.5-14.5); WHITE BLOOD COUNT 10.8 K/uL (4.8-10.8)
[2018-07-19 08:04] LABS: BLOOD UREA NITROGEN 18 mg/dl (9-20); GFR NON-AFRICAN AMERICAN > 60
[2018-07-19] MEDS: Enoxaparin 40 mg Syringe SC SCH (08:46)
[2018-07-19] MEDS: Azithromycin 500 MG in Sodium Chloride 0.9% 250 ML IVPB SCH (08:47)
[2018-07-19] MEDS: Cefepime 2 GM in Sodium Chloride 0.9% 100 ML IVPB SCH ×2 (08:48→21:08)
[2018-07-19] MEDS: SODIUM CHLORIDE 0.9% IVPB SCH (13:18)
[2018-07-19] MEDS: TOBRAMYCIN SULFATE IVPB SCH (13:18)
[2018-07-20] MEDS: Albuterol-Ipratrop 3 mg / 0.5 (3 ml) UD INH SCH ×4 (07:41→19:06)
[2018-07-20] MEDS: Enoxaparin 40 mg Syringe SC SCH (10:10)
[2018-07-20] MEDS: Azithromycin 500 MG in Sodium Chloride 0.9% 250 ML IVPB SCH (10:10)
[2018-07-20] MEDS: guaiFENesin 100 mg/5 ml Syrup UD PO PRN (10:29)
[2018-07-20] MEDS: Morphine 4 MG/ML VIAL IVP PRN ×2 (11:10→20:59)
[2018-07-20] MEDS: Cefepime 2 GM in Sodium Chloride 0.9% 100 ML IVPB SCH ×2 (11:30→21:31)
--- NOTE | 2018-07-20 12:56 | CP.PCM.PN ---
Subjective - Date & Time of Evaluation Date of Evaluation: 07/20/18 Time of Evaluation: 08:00 - Subjective Subjective: seen on rounds IV rx adjusted Objective - Vital Signs/Intake and Output Vital Signs (last 24 hours): Temp Pulse Resp BP Pulse Ox 97.7 F 68 20 133/89 92 L 07/20/18 08:32 07/20/18 10:13 07/20/18 08:32 07/20/18 10:13 07/20/18 08:32 - Medications Medications: Current Medications Acetaminophen (Tylenol 325mg Tab) 650 mg PO Q4 PRN PRN Reason: Pain, Mild (1-3) Last Admin: 07/14/18 08:33 Dose: 650 mg Acetaminophen (Tylenol 325mg Tab) 650 mg PO Q6 PRN PRN Reason: Fever >100.4 F Last Admin: 07/13/18 13:02 Dose: 650 mg Albuterol/Ipratropium (Duoneb 3 Mg/0.5 Mg (3 Ml) Ud) 3 ml INH RQID [facility] Last Admin: 07/20/18 11:02 Dose: 3 ml Amlodipine Besylate (Norvasc) 5 mg PO DAILY [facility] Last Admin: 07/20/18 10:13 Dose: 5 mg Chlordiazepoxide (Librium) 25 mg PO DAILY [facility] Last Admin: 07/20/18 10:18 Dose: 25 mg Enoxaparin Sodium (Lovenox) 40 mg SC DAILY [facility]; Protocol Last Admin: 07/20/18 10:10 Dose: 40 mg Folic Acid (Folic Acid) 1 mg PO DAILY [facility] Last Admin: 07/20/18 10:10 Dose: 1 mg Guaifenesin (Robitussin) 100 mg PO Q6 PRN PRN Reason: Cough Last Admin: 07/20/18 10:29 Dose: 100 mg Azithromycin 500 mg/ Sodium (Chloride) 250 mls @ 250 mls/hr IVPB DAILY [facility]; Protocol Last Admin: 07/20/18 10:10 Dose: 250 mls/hr Cefepime HCl 2 gm/ Sodium (Chloride) 100 mls @ 100 mls/hr IVPB Q12 [facility]; Protocol Last Admin: 07/20/18 11:30 Dose: 100 mls/hr Tobramycin Sulfate 365 mg/ (Sodium Chloride) 259.125 mls @ 259.125 mls/hr IVPB DAILY@1400 [facility] Last Admin: 07/19/18 13:18 Dose: 259.125 mls/hr Morphine Sulfate (Morphine) 2 mg IVP Q4 PRN PRN Reason: Pain, moderate (4-7) Last Admin: 07/20/18 11:10 Dose: 2 mg Nicotine (Nicoderm Cq) 1 patch TD DAILY [facility] Last Admin: 07/20/18 10:11 Dose: 1 patch Thiamine HCl (Vitamin B1 Tab) 100 mg PO DAILY [facility] Last Admin: 07/20/18 10:14 Dose: 100 mg - Labs Labs: 07/19/18 05:30 07/19/18 05:30 PT 11.8 Seconds (9.8-13.1) 07/12/18 07:45 INR 1.0 07/12/18 07:45 APTT 32.2 Seconds (25.6-37.1) 07/12/18 07:45 - Constitutional Appears: Non-toxic, Chronically Ill - Head Exam Head Exam: NORMOCEPHALIC - Eye Exam Eye Exam: absent: Scleral icterus - ENT Exam ENT Exam: Mucous Membranes Dry - Neck Exam Neck Exam: absent: Lymphadenopathy - Respiratory Exam Respiratory Exam: Decreased Breath Sounds - Cardiovascular Exam Cardiovascular Exam: REGULAR RHYTHM - GI/Abdominal Exam GI & Abdominal Exam: Distended, Soft - Rectal Exam Rectal Exam: Deferred - Exam Exam: NORMAL INSPECTION - Extremities Exam Extremities Exam: absent: Pedal Edema - Back Exam Back Exam: absent: CVA tenderness (L), CVA tenderness (R) - Neurological Exam Neurological Exam: Alert, Awake, CN II-XII Intact Assessment and Plan (1) Cough Status: Acute (2) Moderate COPD (chronic obstructive pulmonary disease) Status: Acute (3) Pneumonia Status: Acute (4) Scabies Status: Acute (5) Substance abuse Status: Acute (6) Tension pneumothorax, spontaneous Status: Acute (7) Alcohol abuse Status: Acute - Assessment and Plan (Free Text) Assessment: cont iv antibiotics and skin care Plan: Hep C ab + patient informed will check PCR
[2018-07-20] MEDS: TOBRAMYCIN SULFATE IVPB SCH (13:33)
[2018-07-20] MEDS: SODIUM CHLORIDE 0.9% IVPB SCH (13:33)
--- NOTE | 2018-07-20 19:08 | CP.PCM.PN ---
Subjective - Date & Time of Evaluation Date of Evaluation: 07/18/18 Time of Evaluation: 10:40 - Subjective Subjective: Patient is doing a lot better. Has no SOB no chest pain. WBC is now normal. Has no fever. Started phys therapy Objective - Vital Signs/Intake and Output Vital Signs (last 24 hours): Temp Pulse Resp BP Pulse Ox 97.6 F 74 20 104/67 95 07/20/18 17:19 07/20/18 17:19 07/20/18 17:19 07/20/18 17:19 07/20/18 17:19 - Medications Medications: Current Medications Acetaminophen (Tylenol 325mg Tab) 650 mg PO Q4 PRN PRN Reason: Pain, Mild (1-3) Last Admin: 07/14/18 08:33 Dose: 650 mg Acetaminophen (Tylenol 325mg Tab) 650 mg PO Q6 PRN PRN Reason: Fever >100.4 F Last Admin: 07/13/18 13:02 Dose: 650 mg Albuterol/Ipratropium (Duoneb 3 Mg/0.5 Mg (3 Ml) Ud) 3 ml INH RQID [facility] Last Admin: 07/20/18 15:05 Dose: 3 ml Amlodipine Besylate (Norvasc) 5 mg PO DAILY [facility] Last Admin: 07/20/18 10:13 Dose: 5 mg Chlordiazepoxide (Librium) 25 mg PO DAILY [facility] Last Admin: 07/20/18 10:18 Dose: 25 mg Enoxaparin Sodium (Lovenox) 40 mg SC DAILY [facility]; Protocol Last Admin: 07/20/18 10:10 Dose: 40 mg Folic Acid (Folic Acid) 1 mg PO DAILY [facility] Last Admin: 07/20/18 10:10 Dose: 1 mg Guaifenesin (Robitussin) 100 mg PO Q6 PRN PRN Reason: Cough Last Admin: 07/20/18 10:29 Dose: 100 mg Azithromycin 500 mg/ Sodium (Chloride) 250 mls @ 250 mls/hr IVPB DAILY [facility]; Protocol Last Admin: 07/20/18 10:10 Dose: 250 mls/hr Cefepime HCl 2 gm/ Sodium (Chloride) 100 mls @ 100 mls/hr IVPB Q12 [facility]; Protocol Last Admin: 07/20/18 11:30 Dose: 100 mls/hr Tobramycin Sulfate 365 mg/ (Sodium Chloride) 259.125 mls @ 259.125 mls/hr IVPB DAILY@1400 [facility] Last Admin: 07/20/18 13:33 Dose: 259.125 mls/hr Morphine Sulfate (Morphine) 2 mg IVP Q4 PRN PRN Reason: Pain, moderate (4-7) Last Admin: 07/20/18 11:10 Dose: 2 mg Nicotine (Nicoderm Cq) 1 patch TD DAILY [facility] Last Admin: 07/20/18 10:11 Dose: 1 patch Thiamine HCl (Vitamin B1 Tab) 100 mg PO DAILY [facility] Last Admin: 07/20/18 10:14 Dose: 100 mg - Labs Labs: 07/19/18 05:30 07/19/18 05:30 PT 11.8 Seconds (9.8-13.1) 07/12/18 07:45 INR 1.0 07/12/18 07:45 APTT 32.2 Seconds (25.6-37.1) 07/12/18 07:45 - Head Exam Head Exam: NORMAL INSPECTION - Eye Exam Eye Exam: Normal appearance - ENT Exam ENT Exam: Mucous Membranes Moist - Respiratory Exam Respiratory Exam: Accessory Muscle Use - Cardiovascular Exam Cardiovascular Exam: REGULAR RHYTHM - GI/Abdominal Exam GI & Abdominal Exam: Normal Bowel Sounds - Neurological Exam Neurological Exam: Awake Assessment and Plan (1) Moderate COPD (chronic obstructive pulmonary disease) Status: Acute (2) Pneumonia Status: Acute (3) Substance abuse Status: Acute (4) Tension pneumothorax, spontaneous Status: Acute (5) Alcohol abuse Status: Acute - Assessment and Plan (Free Text) Plan: Cont meds COn ttx Cont PT resp tx ambulate
--- NOTE | 2018-07-20 19:12 | CP.PCM.PN ---
Subjective - Date & Time of Evaluation Date of Evaluation: 07/19/18 Time of Evaluation: 11:00 - Subjective Subjective: Patient continues to do well. Has better appetite Has no SOB. WBC is normal. Objective - Vital Signs/Intake and Output Vital Signs (last 24 hours): Temp Pulse Resp BP Pulse Ox 97.6 F 74 20 104/67 95 07/20/18 17:19 07/20/18 17:19 07/20/18 17:19 07/20/18 17:19 07/20/18 17:19 - Medications Medications: Current Medications Acetaminophen (Tylenol 325mg Tab) 650 mg PO Q4 PRN PRN Reason: Pain, Mild (1-3) Last Admin: 07/14/18 08:33 Dose: 650 mg Acetaminophen (Tylenol 325mg Tab) 650 mg PO Q6 PRN PRN Reason: Fever >100.4 F Last Admin: 07/13/18 13:02 Dose: 650 mg Albuterol/Ipratropium (Duoneb 3 Mg/0.5 Mg (3 Ml) Ud) 3 ml INH RQID [facility] Last Admin: 07/20/18 19:06 Dose: 3 ml Amlodipine Besylate (Norvasc) 5 mg PO DAILY [facility] Last Admin: 07/20/18 10:13 Dose: 5 mg Chlordiazepoxide (Librium) 25 mg PO DAILY [facility] Last Admin: 07/20/18 10:18 Dose: 25 mg Enoxaparin Sodium (Lovenox) 40 mg SC DAILY [facility]; Protocol Last Admin: 07/20/18 10:10 Dose: 40 mg Folic Acid (Folic Acid) 1 mg PO DAILY [facility] Last Admin: 07/20/18 10:10 Dose: 1 mg Guaifenesin (Robitussin) 100 mg PO Q6 PRN PRN Reason: Cough Last Admin: 07/20/18 10:29 Dose: 100 mg Azithromycin 500 mg/ Sodium (Chloride) 250 mls @ 250 mls/hr IVPB DAILY [facility]; Protocol Last Admin: 07/20/18 10:10 Dose: 250 mls/hr Cefepime HCl 2 gm/ Sodium (Chloride) 100 mls @ 100 mls/hr IVPB Q12 [facility]; Protocol Last Admin: 07/20/18 11:30 Dose: 100 mls/hr Tobramycin Sulfate 365 mg/ (Sodium Chloride) 259.125 mls @ 259.125 mls/hr IVPB DAILY@1400 [facility] Last Admin: 07/20/18 13:33 Dose: 259.125 mls/hr Morphine Sulfate (Morphine) 2 mg IVP Q4 PRN PRN Reason: Pain, moderate (4-7) Last Admin: 07/20/18 11:10 Dose: 2 mg Nicotine (Nicoderm Cq) 1 patch TD DAILY [facility] Last Admin: 07/20/18 10:11 Dose: 1 patch Thiamine HCl (Vitamin B1 Tab) 100 mg PO DAILY [facility] Last Admin: 07/20/18 10:14 Dose: 100 mg - Labs Labs: 07/19/18 05:30 07/19/18 05:30 PT 11.8 Seconds (9.8-13.1) 07/12/18 07:45 INR 1.0 07/12/18 07:45 APTT 32.2 Seconds (25.6-37.1) 07/12/18 07:45 - Head Exam Head Exam: NORMAL INSPECTION - Eye Exam Eye Exam: Normal appearance - ENT Exam ENT Exam: Mucous Membranes Moist - Respiratory Exam Respiratory Exam: Clear to Ausculation Bilateral - Cardiovascular Exam Cardiovascular Exam: REGULAR RHYTHM - GI/Abdominal Exam GI & Abdominal Exam: Normal Bowel Sounds - Neurological Exam Neurological Exam: Awake Assessment and Plan (1) Moderate COPD (chronic obstructive pulmonary disease) Status: Acute (2) Pneumonia Status: Acute (3) Substance abuse Status: Acute (4) Tension pneumothorax, spontaneous Status: Acute (5) Alcohol abuse Status: Acute - Assessment and Plan (Free Text) Plan: Con tmeds Con ttx Cont PT subacute rehab alf
--- NOTE | 2018-07-20 19:14 | CP.PCM.PN ---
Subjective - Date & Time of Evaluation Date of Evaluation: 07/20/18 Time of Evaluation: 13:00 - Subjective Subjective: Patient is doing well Has no fever Has good appetite. Afebrile. Objective - Vital Signs/Intake and Output Vital Signs (last 24 hours): Temp Pulse Resp BP Pulse Ox 97.6 F 74 20 104/67 95 07/20/18 17:19 07/20/18 17:19 07/20/18 17:19 07/20/18 17:19 07/20/18 17:19 - Medications Medications: Current Medications Acetaminophen (Tylenol 325mg Tab) 650 mg PO Q4 PRN PRN Reason: Pain, Mild (1-3) Last Admin: 07/14/18 08:33 Dose: 650 mg Acetaminophen (Tylenol 325mg Tab) 650 mg PO Q6 PRN PRN Reason: Fever >100.4 F Last Admin: 07/13/18 13:02 Dose: 650 mg Albuterol/Ipratropium (Duoneb 3 Mg/0.5 Mg (3 Ml) Ud) 3 ml INH RQID [facility] Last Admin: 07/20/18 19:06 Dose: 3 ml Amlodipine Besylate (Norvasc) 5 mg PO DAILY [facility] Last Admin: 07/20/18 10:13 Dose: 5 mg Chlordiazepoxide (Librium) 25 mg PO DAILY [facility] Last Admin: 07/20/18 10:18 Dose: 25 mg Enoxaparin Sodium (Lovenox) 40 mg SC DAILY [facility]; Protocol Last Admin: 07/20/18 10:10 Dose: 40 mg Folic Acid (Folic Acid) 1 mg PO DAILY [facility] Last Admin: 07/20/18 10:10 Dose: 1 mg Guaifenesin (Robitussin) 100 mg PO Q6 PRN PRN Reason: Cough Last Admin: 07/20/18 10:29 Dose: 100 mg Azithromycin 500 mg/ Sodium (Chloride) 250 mls @ 250 mls/hr IVPB DAILY [facility]; Protocol Last Admin: 07/20/18 10:10 Dose: 250 mls/hr Cefepime HCl 2 gm/ Sodium (Chloride) 100 mls @ 100 mls/hr IVPB Q12 [facility]; Protocol Last Admin: 07/20/18 11:30 Dose: 100 mls/hr Tobramycin Sulfate 365 mg/ (Sodium Chloride) 259.125 mls @ 259.125 mls/hr IVPB DAILY@1400 [facility] Last Admin: 07/20/18 13:33 Dose: 259.125 mls/hr Morphine Sulfate (Morphine) 2 mg IVP Q4 PRN PRN Reason: Pain, moderate (4-7) Last Admin: 07/20/18 11:10 Dose: 2 mg Nicotine (Nicoderm Cq) 1 patch TD DAILY [facility] Last Admin: 07/20/18 10:11 Dose: 1 patch Thiamine HCl (Vitamin B1 Tab) 100 mg PO DAILY [facility] Last Admin: 07/20/18 10:14 Dose: 100 mg - Labs Labs: 07/19/18 05:30 07/19/18 05:30 PT 11.8 Seconds (9.8-13.1) 07/12/18 07:45 INR 1.0 07/12/18 07:45 APTT 32.2 Seconds (25.6-37.1) 07/12/18 07:45 - Head Exam Head Exam: NORMAL INSPECTION - Eye Exam Eye Exam: Normal appearance - ENT Exam ENT Exam: Mucous Membranes Moist - Respiratory Exam Respiratory Exam: Decreased Breath Sounds - Cardiovascular Exam Cardiovascular Exam: REGULAR RHYTHM - GI/Abdominal Exam GI & Abdominal Exam: Normal Bowel Sounds Assessment and Plan (1) Moderate COPD (chronic obstructive pulmonary disease) Status: Acute (2) Pneumonia Status: Acute (3) Substance abuse Status: Acute (4) Tension pneumothorax, spontaneous Status: Acute (5) Alcohol abuse Status: Acute - Assessment and Plan (Free Text) Plan: Cont meds Cont tx Cont PT subacaute rehab
[2018-07-21] MEDS: Albuterol-Ipratrop 3 mg / 0.5 (3 ml) UD INH SCH ×4 (07:47→19:39)
[2018-07-21] MEDS: Azithromycin 500 MG in Sodium Chloride 0.9% 250 ML IVPB SCH (09:02)
[2018-07-21] MEDS: Cefepime 2 GM in Sodium Chloride 0.9% 100 ML IVPB SCH ×2 (09:04→21:49)
[2018-07-21] MEDS: Enoxaparin 40 mg Syringe SC SCH (09:06)
[2018-07-21] MEDS: Morphine 4 MG/ML VIAL IVP PRN ×2 (09:44→19:06)
[2018-07-21] MEDS: TOBRAMYCIN SULFATE IVPB SCH (13:44)
[2018-07-21] MEDS: SODIUM CHLORIDE 0.9% IVPB SCH (13:44)
[2018-07-21] MEDS ORDERED: Tobramycin Sulfate 40 mg/ml (2ml) Inj IVPB SCH (14:00)
--- NOTE | 2018-07-21 16:01 | RAD ---
Date of service: 07/21/2018 HISTORY: f/u pneumonia COMPARISON: 07/17/2018. TECHNIQUE: Chest PA and lateral FINDINGS: LUNGS: Stable bullous changes and interstitial lung disease. Hyperinflation/manifestations of COPD. PLEURA: No significant pleural effusion identified. No pneumothorax apparent. CARDIOVASCULAR: No aortic atherosclerotic calcification present. Normal cardiac size. No pulmonary vascular congestion. OSSEOUS STRUCTURES: No significant abnormalities. VISUALIZED UPPER ABDOMEN: Normal. OTHER FINDINGS: None. IMPRESSION: No active disease. No significant interval change compared to the prior examination(s).
--- NOTE | 2018-07-21 18:45 | CP.PCM.PN ---
Subjective - Date & Time of Evaluation Date of Evaluation: 07/21/18 Time of Evaluation: 10:00 - Subjective Subjective: patient seen and examined at bedside. Interim events noted No complaints offered at this time feels better without tube denies cp/sob/fever/chills. available diagnostic data reviewed Review of Systems All systems: reviewed and no additional remarkable complaints except mentioned above Objective Vital Signs Stable - Constitutional Appears: Non-toxic, No Acute Distress Head Exam: NORMAL INSPECTION Eye Exam: Normal appearance Respiratory Exam: NORMAL BREATHING PATTERN Cardiovascular Exam: +S1, +S2 GI & Abdominal Exam: Soft Neurological Exam: Alert, Awake Psychiatric exam: Normal Affect, Normal Mood Skin Exam: Normal Color, Warm Assessment and Plan monitor vitals monitor labs Cont meds Cont tx consultants appreciated input dispo planning rest of plan as ordered Objective - Vital Signs/Intake and Output Vital Signs (last 24 hours): Temp Pulse Resp BP Pulse Ox 97 F L 68 20 117/76 93 L 07/21/18 16:07 07/21/18 17:53 07/21/18 16:07 07/21/18 16:07 07/21/18 17:53 - Medications Medications: Current Medications Acetaminophen (Tylenol 325mg Tab) 650 mg PO Q4 PRN PRN Reason: Pain, Mild (1-3) Last Admin: 07/14/18 08:33 Dose: 650 mg Acetaminophen (Tylenol 325mg Tab) 650 mg PO Q6 PRN PRN Reason: Fever >100.4 F Last Admin: 07/13/18 13:02 Dose: 650 mg Albuterol/Ipratropium (Duoneb 3 Mg/0.5 Mg (3 Ml) Ud) 3 ml INH RQID [facility] Last Admin: 07/21/18 15:51 Dose: 3 ml Amlodipine Besylate (Norvasc) 5 mg PO DAILY [facility] Last Admin: 07/21/18 09:06 Dose: 5 mg Chlordiazepoxide (Librium) 25 mg PO DAILY [facility] Last Admin: 07/21/18 09:10 Dose: 25 mg Enoxaparin Sodium (Lovenox) 40 mg SC DAILY [facility]; Protocol Folic Acid (Folic Acid) 1 mg PO DAILY [facility] Last Admin: 07/21/18 09:07 Dose: 1 mg Guaifenesin (Robitussin) 100 mg PO Q6 PRN PRN Reason: Cough Last Admin: 07/20/18 10:29 Dose: 100 mg Cefepime HCl 2 gm/ Sodium (Chloride) 100 mls @ 100 mls/hr IVPB Q12 [facility]; Protocol Tobramycin Sulfate 365 mg/ (Sodium Chloride) 259.125 mls @ 259.125 mls/hr IVPB DAILY@1400 [facility] Last Admin: 07/21/18 13:44 Dose: 259.125 mls/hr Morphine Sulfate (Morphine) 2 mg IVP Q4 PRN PRN Reason: Pain, moderate (4-7) Last Admin: 07/21/18 09:44 Dose: 2 mg Nicotine (Nicoderm Cq) 1 patch TD DAILY [facility] Last Admin: 07/21/18 09:06 Dose: 1 patch Thiamine HCl (Vitamin B1 Tab) 100 mg PO DAILY [facility] Last Admin: 07/21/18 09:06 Dose: 100 mg - Labs Labs: 07/19/18 05:30 07/19/18 05:30 PT 11.8 Seconds (9.8-13.1) 07/12/18 07:45 INR 1.0 07/12/18 07:45 APTT 32.2 Seconds (25.6-37.1) 07/12/18 07:45 Assessment and Plan (1) Tension pneumothorax, spontaneous Status: Acute (2) Pneumonia Status: Acute
[2018-07-22] MEDS: Albuterol-Ipratrop 3 mg / 0.5 (3 ml) UD INH SCH ×4 (07:53→19:18)
[2018-07-22] MEDS: Enoxaparin 40 mg Syringe SC SCH (09:15)
[2018-07-22] MEDS: Morphine 4 MG/ML VIAL IVP PRN ×2 (09:41→20:05)
--- NOTE | 2018-07-22 10:21 | CP.PCM.PN ---
Subjective - Date & Time of Evaluation Date of Evaluation: 07/22/18 Time of Evaluation: 08:00 - Subjective Subjective: improving on IV rx awake nad skin improving Objective - Vital Signs/Intake and Output Vital Signs (last 24 hours): Temp Pulse Resp BP Pulse Ox 97.3 F L 61 20 118/76 94 L 07/22/18 08:33 07/22/18 09:14 07/22/18 08:33 07/22/18 09:14 07/22/18 08:33 - Medications Medications: Current Medications Acetaminophen (Tylenol 325mg Tab) 650 mg PO Q4 PRN PRN Reason: Pain, Mild (1-3) Last Admin: 07/14/18 08:33 Dose: 650 mg Acetaminophen (Tylenol 325mg Tab) 650 mg PO Q6 PRN PRN Reason: Fever >100.4 F Last Admin: 07/13/18 13:02 Dose: 650 mg Albuterol/Ipratropium (Duoneb 3 Mg/0.5 Mg (3 Ml) Ud) [address] [facility] Last Admin: 07/22/18 07:53 Dose: 3 ml Amlodipine Besylate (Norvasc) [address] [facility] Last Admin: 07/22/18 09:14 Dose: 5 mg Chlordiazepoxide (Librium) [address] [facility] Last Admin: 07/22/18 09:17 Dose: 25 mg Enoxaparin Sodium (Lovenox) [address] [facility]; Protocol Last Admin: 07/22/18 09:15 Dose: 40 mg Folic Acid (Folic Acid) [address] [facility] Last Admin: 07/22/18 09:14 Dose: 1 mg Guaifenesin (Robitussin) 100 mg PO Q6 PRN PRN Reason: Cough Last Admin: 07/20/18 10:29 Dose: 100 mg Cefepime HCl 2 gm/ Sodium (Chloride) 100 mls @ 100 mls/hr IVPB Q12 [facility]; Protocol Last Admin: 07/21/18 21:49 Dose: 100 mls/hr Tobramycin Sulfate 365 mg/ (Sodium Chloride) 259.125 mls @ 259.125 mls/hr IVPB DAILY@1400 [facility] Last Admin: 07/21/18 13:44 Dose: 259.125 mls/hr Morphine Sulfate (Morphine) 2 mg IVP Q4 PRN PRN Reason: Pain, moderate (4-7) Last Admin: 07/22/18 09:41 Dose: 2 mg Nicotine (Nicoderm Cq) [address] [facility] Last Admin: 07/22/18 09:14 Dose: 1 patch Thiamine HCl (Vitamin B1 Tab) [address] [facility] Last Admin: 07/22/18 09:14 Dose: 100 mg - Labs Labs: 07/19/18 05:30 07/19/18 05:30 PT 11.8 Seconds (9.8-13.1) 07/12/18 07:45 INR 1.0 07/12/18 07:45 APTT 32.2 Seconds (25.6-37.1) 07/12/18 07:45 - Constitutional Appears: Well - Head Exam Head Exam: ATRAUMATIC, NORMAL INSPECTION, NORMOCEPHALIC - Eye Exam Eye Exam: EOMI, Normal appearance, PERRL Pupil Exam: NORMAL ACCOMODATION, PERRL - ENT Exam ENT Exam: Mucous Membranes Moist, Normal Exam - Neck Exam Neck Exam: Full ROM, Normal Inspection. absent: Lymphadenopathy - Respiratory Exam Respiratory Exam: Clear to Ausculation Bilateral, NORMAL BREATHING PATTERN - Cardiovascular Exam Cardiovascular Exam: REGULAR RHYTHM, +S1, +S2. absent: Murmur - GI/Abdominal Exam GI & Abdominal Exam: Soft, Normal Bowel Sounds. absent: Tenderness - Rectal Exam Rectal Exam: Deferred - Exam Exam: NORMAL INSPECTION - Extremities Exam Extremities Exam: Full ROM, Normal Capillary Refill, Normal Inspection. absent: Joint Swelling, Pedal Edema - Back Exam Back Exam: NORMAL INSPECTION - Neurological Exam Neurological Exam: Alert, Awake, CN II-XII Intact, Oriented x3 - Psychiatric Exam Psychiatric exam: Normal Affect, Normal Mood - Skin Skin Exam: Dry, Intact, Normal Color, Warm Assessment and Plan (1) Cough Status: Acute (2) Moderate COPD (chronic obstructive pulmonary disease) Status: Acute (3) Pneumonia Status: Acute (4) Scabies Status: Acute (5) Substance abuse Status: Acute (6) Tension pneumothorax, spontaneous Status: Acute (7) Alcohol abuse Status: Acute
[2018-07-22] MEDS: Cefepime 2 GM in Sodium Chloride 0.9% 100 ML IVPB SCH ×2 (12:31→20:48)
[2018-07-22] MEDS: SODIUM CHLORIDE 0.9% IVPB SCH (18:53)
[2018-07-22] MEDS: TOBRAMYCIN SULFATE IVPB SCH (18:53)
[2018-07-23 06:50] LABS: HEMOGLOBIN 14.5 g/dL (12.0-18.0); MEAN CELL VOLUME 95.4 fl (80.0-94.0); MEAN CORPUSCULAR HEMOGLOBIN 32.4 pg (27.0-31.0); MEAN CORPUSCULAR HGB CONC 33.9 g/dL (33.0-37.0); RBC 4.49 Mil/uL (4.40-5.90); RED CELL DISTRIBUTION WIDTH 12.5 % (11.5-14.5)
[2018-07-23 06:58] LABS: BLOOD UREA NITROGEN 25 mg/dl (9-20); CALCIUM 10.2 mg/dL (8.4-10.2); GFR NON-AFRICAN AMERICAN > 60
[2018-07-23] MEDS: Albuterol-Ipratrop 3 mg / 0.5 (3 ml) UD INH SCH ×3 (07:52→15:41)
[2018-07-23] MEDS: Enoxaparin 40 mg Syringe SC SCH (10:22)
[2018-07-23] MEDS: Cefepime 2 GM in Sodium Chloride 0.9% 100 ML IVPB SCH (12:56)
[2018-07-23] MEDS: TOBRAMYCIN SULFATE IVPB SCH (12:59)
[2018-07-23] MEDS: SODIUM CHLORIDE 0.9% IVPB SCH (12:59)
--- NOTE | 2018-07-23 13:11 | PQF ---
PROVIDER RESPONSE TEXT: Probable bacterial pneumonia REVIEWER QUERY TEXT: Pneumonia Specificity Pneumonia is documented in the Medical Record. Please specify the type of pneumonia and the causative organism (includes probable or suspected) CAP merely represents the method of acquisition and not th e specific type of pneumonia. Sputum CS Normal crystal. Such as: Type: -- Aspiration pneumonia (please also specify the aspirate) -- Bacterial (please document suspected or probable organism) -- Bronchopneumonia (please document suspected or probable organism) -- Interstitial pneumonia -- Lobar pneumonia -- Organizing pneumonia / BOOP -- Viral -- Other, please specify The patient's Clinical Indicators include: Presents with productive cough which has worsened over the last week. + SOB 3 CXR: New large left lateral pole of versus loculated pneumothorax. Mild mediastinal shift to the right.Stable large medial biapical bullae. 07/13 CT CHEST: Extensive centrilobular and paraseptal emphysema with large bullae seen bilaterally. L eft-sided large-bore chest tube without evidence of pneumothorax. Remains unclear whether there was a pneumothorax or a very large bulla in this region. Large left lower lobe consolidation and/or atelectasis. 07/13 + Fever now. Started on IVAB Query created by: Erin Plunkett on 07/16/2018 9:53 AM Electronically signed by: Khoi Durbin MD 07/23/2018 1:08 PM
--- NOTE | 2018-07-23 13:11 | PQF ---
PROVIDER RESPONSE TEXT: Pneumonia present on admission REVIEWER QUERY TEXT: Present On Admission It is unclear whether a diagnosis of Pneumonia was present on admission. Your help is needed. Pleas e clarify the POA status Such as: -- Present on admission -- Not present on admission -- Other explanation please specify The patient's Clinical Indicators include: Presents with productive cough which has worsened over the last week. + SOB 3/ CXR: New large left lateral pole of versus loculated pneumothorax. Mild mediastinal shift to the right.Stable large medial biapical bullae. 07/13 CT CHEST: Extensive centrilobular and paraseptal emphysema with large bullae seen bilaterally. L eft-sided large-bore chest tube without evidence of pneumothorax. Remains unclear whether there was a pneumothorax or a very large bulla in this region. Large left lower lobe consolidation and/or atelectasis. 07/13 + Fever now. Started on IVAB Query created by: Erin Plunkett on 07/16/2018 9:47 AM Electronically signed by: Khoi Durbin MD 07/23/2018 1:08 PM
--- NOTE | 2018-07-23 13:47 | CP.PCM.PN ---
Subjective - Date & Time of Evaluation Date of Evaluation: 07/23/18 Time of Evaluation: 09:00 - Subjective Subjective: afeb skin improved Objective - Vital Signs/Intake and Output Vital Signs (last 24 hours): Temp Pulse Resp BP Pulse Ox 97.6 F 61 19 112/71 95 07/23/18 09:33 07/23/18 10:18 07/23/18 09:33 07/23/18 10:18 07/23/18 09:33 - Medications Medications: Current Medications Acetaminophen (Tylenol 325mg Tab) 650 mg PO Q4 PRN PRN Reason: Pain, Mild (1-3) Last Admin: 07/14/18 08:33 Dose: 650 mg Acetaminophen (Tylenol 325mg Tab) 650 mg PO Q6 PRN PRN Reason: Fever >100.4 F Last Admin: 07/13/18 13:02 Dose: 650 mg Albuterol/Ipratropium (Duoneb 3 Mg/0.5 Mg (3 Ml) Ud) 3 ml INH RQID [facility] Last Admin: 07/23/18 11:36 Dose: 3 ml Amlodipine Besylate (Norvasc) 5 mg PO DAILY [facility] Last Admin: 07/23/18 10:18 Dose: 5 mg Chlordiazepoxide (Librium) 25 mg PO DAILY [facility] Last Admin: 07/23/18 10:28 Dose: 25 mg Enoxaparin Sodium (Lovenox) 40 mg SC DAILY [facility]; Protocol Last Admin: 07/23/18 10:22 Dose: 40 mg Folic Acid (Folic Acid) 1 mg PO DAILY [facility] Last Admin: 07/23/18 10:18 Dose: 1 mg Guaifenesin (Robitussin) 100 mg PO Q6 PRN PRN Reason: Cough Last Admin: 07/20/18 10:29 Dose: 100 mg Cefepime HCl 2 gm/ Sodium (Chloride) 100 mls @ 100 mls/hr IVPB Q12 [facility]; Protocol Last Admin: 07/23/18 12:56 Dose: 100 mls/hr Tobramycin Sulfate 365 mg/ (Sodium Chloride) 259.125 mls @ 259.125 mls/hr IVPB DAILY@1400 [facility] Last Admin: 07/23/18 12:59 Dose: 259.125 mls/hr Morphine Sulfate (Morphine) 2 mg IVP Q4 PRN PRN Reason: Pain, moderate (4-7) Last Admin: 07/22/18 20:05 Dose: 2 mg Nicotine (Nicoderm Cq) 1 patch TD DAILY [facility] Last Admin: 07/23/18 10:19 Dose: 1 patch Thiamine HCl (Vitamin B1 Tab) 100 mg PO DAILY [facility] Last Admin: 07/23/18 10:18 Dose: 100 mg - Labs Labs: 07/23/18 05:40 07/23/18 05:40 PT 11.8 Seconds (9.8-13.1) 07/12/18 07:45 INR 1.0 07/12/18 07:45 APTT 32.2 Seconds (25.6-37.1) 07/12/18 07:45 Assessment and Plan (1) Cough Status: Acute (2) Moderate COPD (chronic obstructive pulmonary disease) Status: Acute (3) Pneumonia Status: Acute (4) Scabies Status: Acute (5) Substance abuse Status: Acute (6) Tension pneumothorax, spontaneous Status: Acute (7) Alcohol abuse Status: Acute
[2018-07-23] MEDS: Morphine 4 MG/ML VIAL IVP PRN (15:20)
[2018-07-23 16:14] VITALS: BP 101/65; PULSE 62; RESP 20; TEMP 97.1; O2SAT 98
== END 2018-07-23 18:11 | DRG 541 ==
LOC: H.ER 05:12 → H.ERHOLD 09:09 → H.ICU/CCU 10:34 → H.MEDSURG1 07-15 16:10
PROVIDERS: ADMIT Family Medicine; ATTEND Family Medicine
PROC: 0W9B30Z Drainage of Left Pleural Cavity with Drainage Device, Percutaneous Approach (ICD-10-PCS; principal; 2018-07-12)
DX: J93.0 Spontaneous tension pneumothorax (principal); J15.9 Unspecified bacterial pneumonia; F14.10 Cocaine abuse, uncomplicated; F11.10 Opioid abuse, uncomplicated; F10.239 Alcohol dependence with withdrawal, unspecified; J43.2 Centrilobular emphysema; B86 Scabies; R06.89 Other abnormalities of breathing; Z59.0 Homelessness; Y90.2 Blood alcohol level of 40-59 mg/100 ml; I10 Essential (primary) hypertension; F41.9 Anxiety disorder, unspecified; F32.9 Major depressive disorder, single episode, unspecified; F17.210 Nicotine dependence, cigarettes, uncomplicated; K40.90 Unilateral inguinal hernia, without obstruction or gangrene, not specified as recurrent; J95.812 Postprocedural air leak